=== PATIENT | female | born 1940 | race Caucasian/White ===

== ENCOUNTER → 2018-06-12 10:02 | Outpatient (CLI) | payer MEDICARE, SELFPAY ==
--- NOTE | 2018-06-12 10:06 | BI_ITS ---
MAMMOGRAPHY - BILATERAL SCREENING REASON FOR EXAM: Female, 78 years old. Routine annual screening examination. PERTINENT HISTORY: Aunt with breast cancer. Remote left stereotactic breast biopsy. TECHNIQUE: Digital bilateral breast renetta (3D mammographic acquisition) in the CC and MLO projections. 2-D mediolateral oblique (MLO) and craniocaudad (CC) views of both breasts were obtained. CAD: Full Field Digital Mammography with Computer Added Detection was performed. COMPARISON: Comparison is made with prior study dated April 16, 2017 and April 13, 2016. FINDINGS: Breast Composition: The breasts are almost entirely fatty. There are no dominant masses or suspicious calcifications. Stable benign-appearing bilateral axillary lymph nodes. A stereotactic tissue clip marker is once again seen in the medial aspect of the left breast. No other significant abnormalities are identified. There has been no significant change since the prior study. BI/SCREENING MAMM (CAD), BILAT IMPRESSION: Stable bilateral screening mammogram. Yearly follow-up mammogram recommended. (A) ASSESSMENT CATEGORY: BIRADS Category 2: Benign. A letter regarding these results will be sent to the patient by the facility within 30 days. Approximately 10% of breast cancers are not detected by mammography. A normal mammogram should not delay biopsy of a clinically suspicious abnormality. [id number] Electronically Signed: Jonathan Schaffer MD at 13:10 EST Tel [phone], Service support ,
--- NOTE | 2018-06-12 10:20 | BD_ITS ---
STUDY: DUAL ENERGY X-RAY ABSORPTIOMETRY / DXA REASON FOR EXAM: Female, 78 years old. The patient is postmenopausal. TECHNIQUE: Bone Mineral Density (BMD) measurements of lumbar spine and right hip were obtained. COMPARISON: Comparison is made with prior study dated April 13, 2016 and March 31, 2014. FINDINGS: Lumbar Spine (L1-L4): g/cm2 (1.323) / T-score (1.3) / Z-score (3.1) Findings are suggestive of normal bone density with a low fracture risk. Right Femur Total: g/cm2 (0.813) / T-score (-1.5) / Z-score (0.4) Right Femoral Neck: g/cm2 (0.756) / T-score (-2.0) / Z-score (0.0) The T-Scores on the most recent prior examination were: Lumbar Spine (L1-L4): There has been improvement of bone density since the previous examination. Right Femur Total: which represents a worsening of 2.9%. BD/Dexa Bone Density Study IMPRESSION: The patient is considered osteopenic as outlined below according to World Wei Organization (WHO) criteria with a moderate fracture risk. There has been worsening of bone density since the previous examination. Reference Information: The T-score is the number of standard deviations above or below the standard which is normal for young adults at their peak bone mineral density. The World Health Organization (WHO) interprets the T-scores as follows: Above -1 Normal bone density Between -1 and -2.5 Osteopenia Equal to / or below -2.5 Osteoporosis As a practical clinical guideline, osteopenia may be graded as follows: Mild -1 through -1.5 Moderate -1.6 through -2.0 Severe -2.1 through -2.4 The Z-score is the number of standard deviations above or below age-matched controls. A Z-score of less than -1.5 would be considered abnormal. References: 1. NIH Osteoporosis and Related Bone Diseases http://www.osteo.org 2. International Society for Clinical Densitometry http://www.iscd.org 3. National Osteoporosis Foundation http://www.nof.org Electronically Signed: Jonathan Schaffer MD at 14:28 EST Tel [phone], Service support ,
== END ==
PROVIDERS: Family Provider Internal Medicine; PCP Internal Medicine; Referring Provider Internal Medicine; Visit Provider Internal Medicine
DX: Z12.31 Encounter for screening mammogram for malignant neoplasm of breast (principal); Z78.0 Asymptomatic menopausal state
CPT/HCPCS: 77063; 77067; 77080

== ENCOUNTER → 2019-02-19 09:46 | Outpatient (CLI) | payer MEDICARE, SELFPAY ==
--- NOTE | 2019-02-19 09:48 | CDU_ITS ---
Reason For Study: ABN DOPPLER Rt. Velocities/BP Lt. Velocities/BP Prox CCA 123/20 cm/sec. Prox CCA 109+/21 cm/sec. Mid CCA 85/17 cm/sec. Mid CCA 94/19 cm/sec. Dist CCA 71/13 cm/sec. Dist CCA 96/25 cm/sec. Prox ICA 97/22 cm/sec. Prox ICA 85/18 cm/sec. Mid ICA 84/23 cm/sec. Mid ICA 81/25 cm/sec. Dist ICA 104/28 cm/sec. Dist ICA 105/30 cm/sec. Rt. ICA/CCA = .8. Lt. ICA/CCA = 1.0. Prox ECA 119/13 cm/sec. Prox ECA 123/14 cm/sec. Rt. Vert. 54/15 cm/sec. Lt. Vert. 44/11 cm/sec. Right Extracranial There is intimal thickening but no significant atherosclerotic plaque noted in the right common carotid artery. There is heterogeneous, irregular atherosclerotic plaque noted in the right internal carotid artery. There is heterogeneous, irregular atherosclerotic plaque noted in the right external carotid artery. Antegrade flow is noted in the right vertebral artery. Left Extracranial There is intimal thickening but no significant atherosclerotic plaque noted in the left common carotid artery. There is heterogeneous, irregular atherosclerotic plaque noted in the left internal carotid artery. There is heterogeneous, irregular atherosclerotic plaque noted in the left external carotid artery. Antegrade flow is noted in the left vertebral artery. Procedure Carotid Duplex [id number]. Exam performed in department. Interpretation Summary Mild (<50%) stenosis right extracranial internal carotid. Mild (<50%) stenosis left extracranial internal carotid. Flow within the vertebral arteries is antegrade bilaterally. Ordering Physician: Maritza Grbubs Referring Physician: Maritza Grubbs Performed By: Anita Epperson, RDCS, RVT
== END ==
PROVIDERS: Family Provider Internal Medicine; PCP Internal Medicine; Referring Provider Internal Medicine; Visit Provider Internal Medicine
DX: I65.23 Occlusion and stenosis of bilateral carotid arteries (principal); R93.89 Abnormal findings on diagnostic imaging of other specified body structures
CPT/HCPCS: 93880

== ENCOUNTER → 2019-06-18 13:07 | Outpatient (CLI) | payer MEDICARE, SELFPAY ==
--- NOTE | 2019-06-18 13:10 | BI_ITS ---
MAMMOGRAPHY - BILATERAL SCREENING REASON FOR EXAM: Female, 79 years old. Routine annual screening examination. PERTINENT HISTORY: Aunt with breast cancer. Remote left stereotactic breast biopsy. TECHNIQUE: Digital bilateral breast kaykay (3D mammographic acquisition) in the CC and MLO projections. 2-D mediolateral oblique (MLO) and craniocaudad (CC) views of both breasts were obtained. CAD: Full Field Digital Mammography with Computer Added Detection was performed. COMPARISON: Comparison is made with prior study dated June 12, 2018. FINDINGS: Breast Composition: The breasts are almost entirely fatty. There are no dominant masses or suspicious calcifications. Stable small benign-appearing bilateral axillary lymph No other significant abnormalities are identified. There has been no significant change since the prior study. BI/SCREEN MAMM (CAD) W/KAYKAY BILAT IMPRESSION: Stable bilateral screening mammogram. Yearly follow-up mammogram recommended. (A) ASSESSMENT CATEGORY: BIRADS Category 2: Benign. A letter regarding these results will be sent to the patient by the facility within 30 days. Approximately 10% of breast cancers are not detected by mammography. A normal mammogram should not delay biopsy of a clinically suspicious abnormality. [id number] Electronically Signed: Jonathan Schaffer, at 15:22 EST , Service support ,
== END ==
PROVIDERS: Family Provider Internal Medicine; PCP Internal Medicine; Referring Provider Internal Medicine; Visit Provider Internal Medicine
DX: Z12.31 Encounter for screening mammogram for malignant neoplasm of breast (principal)
CPT/HCPCS: 77063; 77067

== ENCOUNTER 2020-04-03 13:29 | Emergency (ER) | payer MEDICARE, SELFPAY ==
[2020-04-03 13:29] VITALS: BP 150/63; PULSE 74; RESP 22; TEMP 37.2; O2SAT 97; BMI 35.5
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
[2020-04-03 14:02] VITALS: BP 150/63; PULSE 74; RESP 17; TEMP 37.2
[2020-04-03] MEDS: 0.9% Normal Saline 1,000 ML 1000 ML IV (14:21)
[2020-04-03 14:27] LABS: Absolute Lymphocyte Count 2.06 X10^3/uL (0.83-4.51); Absolute Neutrophil Count 5.2 X10^3/uL (2.0-7.7); Basophil# 0.03 X10^3/uL; Basophil% 0.4 % (0-1); Eosinophil# 0.11 X10^3/uL; Eosinophils% 1.4 % (0-5); Hemoglobin 13.9 g/dL (12.0-15.0); Lymphocyte # 2.06 X10^3/ul (4.0); Lymphocyte % 25.5 % (19-41); Mean Corp Hgb Conc 33.9 g/dL (32-36); Mean Corpuscular Volume 91.3 fL (81-99); Mean Platelet Vol. 10.3 fl (6.2-12.0); Monocyte# 0.65 X10^3/uL; NRBC Flagged by Analyzer 0 % (0-5); Neutrophil # 5.22 X10^3/uL (2.7-7.7); Neutrophil % 64.6 % (47-70); Platelet Count 273 K/mm3 (150-450); RBC Distribution Width CV 12.8 % (11.6-14.6); RBC Distribution Width SD 42.1 fl (35.1-43.9); Red Blood Count 4.49 M/mm3 (4.2-5.4); White Blood Count 8.1 K/mm3 (4.4-11.0)
[2020-04-03 14:42] LABS: AST(SGOT) 24 U/L (15-37); Alanine Aminotransfer ALT/SGPT 34 U/L (13-56); Albumin, Serum 3.6 g/dL (3.2-5.0); Alkaline Phosphatase 51 U/L (45-117); Anion Gap 8 (5-15); BUN 23 mg/dL (7-18); BUN/Creat Ratio 21.7 RATIO (10-20); Calcium,Total 9.3 mg/dL (8.5-10.1); Chloride 103 mmol/L (98-107); Creatinine, Serum 1.06 mg/dL (0.55-1.02); EST Glomerular Filtration Rate 53 mL/min (>60); Est Glom Filt Rate - Afr Amer 64 mL/min (>60); Estimated Creatinine Clearance 33.48 ml/min; Globulin 3.5 g/dL (2.2-4.2); Glucose 137 mg/dL (74-106); Lipase 178 U/L (73-393); Protein, Total 7.1 g/dL (6.4-8.2); Sodium Level 138 mmol/L (136-145)
[2020-04-03 14:59] LABS: Mucous, Urine 0 SEEN /hpf (<or=2+); Red Blood Cells-Urine 0 SEEN /hpf (0-5); Squamous Epithelial Cells - UA 0 SEEN /hpf (5-10); White Blood Cells 0 SEEN /hpf (0-5)
[2020-04-03 15:10] LABS: Color, Urine Yellow (Yellow); Glucose, Dipstick Normal (Normal); Ketone-Dipstick 5 mg/dl (Negative); Leukocyte Esterase-Dipstick 25 /ul (Negative); Nitrite-Dipstick Negative (Negative); Occult Blood-Urine Negative /ul (Negative); Protein-Dipstick Negative (Negative); Specific Gravity, Urine 1.015 (1.002-1.030); Urine Bilirubin Dipstick Negative (Negative); Urine Clarity Clear (Clear); Urine Urobilinogen Normal (Normal)
[2020-04-03 15:22] LABS: Bacteria 1+ /hpf (None Seen); Hyaline Cast 0-5 SEEN /lpf (0-5)
--- NOTE | 2020-04-03 15:54 | ED.DEP ---
ED Disposition - Plan for ED Patient: Disposition: Home or Assisted Living Instructions: ED Abdominal Pain Unkn Cause Fem Referrals: Maritza Grubbs, [Primary Care Provider] - As soon as possible Additional Instructions: Your tests all look good except there is a possible cyst in your left lower abdomen that may or may not be causing your pain. You need to have an outpatient pelvic ultrasound to further evaluate this possible cyst. I spoke to Dr. Mcrae today. Call and follow-up with Dr. Browne on Sunday to be scheduled for an outpatient pelvic ultrasound to further evaluate this cyst.
[2020-04-03 16:09] VITALS: BP 152/102; PULSE 78; RESP 19; O2SAT 95
== END 2020-04-03 16:00 | disposition home or self-care (01) ==
PROVIDERS: Emergency Provider Emergency Medicine; PCP Internal Medicine
DX: R10.32 Left lower quadrant pain (principal); N94.89 Other specified conditions associated with female genital organs and menstrual cycle; K57.90 Diverticulosis of intestine, part unspecified, without perforation or abscess without bleeding; E03.9 Hypothyroidism, unspecified; E11.9 Type 2 diabetes mellitus without complications; Z79.82 Long term (current) use of aspirin; Z79.84 Long term (current) use of oral hypoglycemic drugs; Z79.899 Other long term (current) drug therapy
CPT/HCPCS: 74177; 80053; 81001; 83690; 85025; 96360; 99283; J7030; Q9967; A4216

== ENCOUNTER → 2020-04-21 13:50 | Outpatient (CLI) | payer MEDICARE, SELFPAY ==
[2020-04-03 13:29] VITALS: BMI 35.5
--- NOTE | 2020-04-21 13:54 | US_ITS ---
STUDY: ULTRASOUND OF THE FEMALE PELVIS - COMPLETE REASON FOR EXAM: Female, 80 years old. PELVIC PAIN , LTO CYST ON CT 04/03/20 LMP: Postmenopausal. TECHNIQUE: Transabdominal TECHNICAL QUALITY: Adequate. COMPARISON: Comparison is made with prior CT scan of the pelvis dated 04/03/2020. FINDINGS: The uterus is anteverted and is in a midline position. The uterus measures 7 cm x 4.1 cm x 2.8 cm. Normal uterine cervix. The endometrium measures 2.1 mm in thickness, and is . There is no demonstrated endometrial mass. There is no demonstrated myometrial mass. I.U.D. - The patient does not have an I.U.D. The right ovary is non-visualized. The left ovary is visualized. The left ovary measures 5.3 cm x 5.5 cm x 3.2 cm. There is a 3.8 cm x 3.3 cm x 2.4 cm simple cyst in the left ovary. There is no visualized left adnexal mass or complex lesion. There is normal arterial and normal venous vascularity. There is no fluid in the cul-de-sac. The pre void volume of the bladder was 171 ml. US/Pelvic (Non ) IMPRESSION: 3.8 cm x 3.3 cm x 2.4 cm left ovarian cyst. Follow-up is recommended. Electronically Signed: Jonathan Schaffer, at 15:43 EST , Service support ,
== END ==
PROVIDERS: PCP Internal Medicine; Referring Provider Internal Medicine; Visit Provider Internal Medicine
DX: R10.2 Pelvic and perineal pain (principal)
CPT/HCPCS: 76856

== ENCOUNTER → 2020-04-28 10:44 | Outpatient (CLI) | payer MEDICARE, SELFPAY ==
[2020-04-03 13:29] VITALS: BMI 35.5
[2020-04-29 08:43] LABS: Cancer Antigen 125 6.6 U/mL (0.0-38.1)
== END ==
PROVIDERS: PCP Internal Medicine; Referring Provider Obstetrics & Gynecology Gynecology; Visit Provider Obstetrics & Gynecology Gynecology
DX: D39.12 Neoplasm of uncertain behavior of left ovary (principal)
CPT/HCPCS: 36415; 86304

== ENCOUNTER 2020-06-29 08:48 | Emergency (ER) | payer MEDICARE, SELFPAY ==
[2020-06-29 08:49] VITALS: BP 140/64; PULSE 80; RESP 16; TEMP 36.4; O2SAT 96; BMI 34.7
--- NOTE | 2020-06-29 09:01 | ED.VIS.GEN ---
History of Present Illness Chief Complaint: Upper Extremity Injury Informant: Patient Narrative: 80-year-old female presents with atraumatic left wrist pain of 1 day duration. Symptoms began yesterday when she woke up and is progressively gotten worse. She notes pain of the wrist any type of range of motion. She denies any known trauma. No known inflammatory arthropathies. No history of tendinitis. She has previously broken this wrist. Patient states she called her doctor's office today and was told to come to emergency as she may need an x-ray. Past Medical History - Allergies and Home Meds Allergies/Adverse Reactions: Allergies acetaminophen [From Darvocet-N] Allergy (Verified 06/29/20 08:49) PT UNSURE OF REACTION nabumetone Allergy (Verified 06/29/20 08:49) PT UNSURE OF REACTION propoxyphene [From Darvocet-N] Allergy (Verified 06/29/20 08:49) PT UNSURE OF REACTION rosiglitazone [From Avandia] Allergy (Verified 06/29/20 08:49) PT UNSURE OF REACTION saxagliptin [From Onglyza] Allergy (Verified 06/29/20 08:49) PT UNSURE OF REACTION simvastatin [From Zocor] Allergy (Verified 06/29/20 08:49) PT UNSURE OF REACTION terbinafine [From Lamisil] Allergy (Verified 06/29/20 08:49) PT UNSURE OF REACTION tramadol Allergy (Verified 06/29/20 08:49) PT UNSURE OF REACTION warfarin [From Coumadin] Allergy (Verified 06/29/20 08:49) PT UNSURE OF REACTION Primary Care Physician: Maritza Grubbs DO [Primary Care Provider] - Past Medical History: - - Diabetes, neuropathy, hypertension, hyperlipidemia, hypothyroidism Surgical History: noncontributory Lives: Spouse/ Significant Other Smoking Status: Never smoker Alcohol: None Drugs: None Review of Systems General: Denies: Chills, Fever, Sweats Eyes: Denies: Visual changes - bilaterally, Diplopia ENT: Denies: Rhinorrhea, Sore throat Cardiovascular: Denies: Chest pain, Palpitations Respiratory: Denies: Dyspnea, Cough, Dyspnea on exertion Gastrointestinal: Denies: Abdominal pain, Nausea, Vomiting, Diarrhea, Melena, Hematochezia Genitourinary: Denies: Dysuria, Hematuria, Frequency Musculoskeletal: Reports: Extremity Pain. Denies: Back pain Skin: Denies: Rash, Wounds Neurological: Denies: Headache, Weakness, Numbness Physical Exam Vital Signs/Narrative: Vital Signs Temp Pulse Resp BP Pulse Ox 06/29/20 08:49 97.5 F L 80 16 140/64 H 96 Inital Vital Signs reviewed: Yes General: Well nourished, Well developed, No Acute Distress Head: Normocephalic, Atraumatic Eyes: Perrl, EOMI ENT: Moist mucous membranes, No rhinorrhea Neck: Supple, Nontender Cardiovascular: Regular rate, Regular rhythm, No murmurs Respiratory: No distress, CTA bilaterally, Chest nontender Abdomen: Soft, Nontender, Nondistended, Normal bowel sounds Back: Nontender, Normal Inspection Extremities: No edema, - - Left wrist no deformity. No significant swelling. Mild erythema along the lateral dorsal aspect of the wrist. She has pain with any motion of her thumb. Vascular intact Skin: Normal color, No rash Neurological: Alert, Oriented x3, Cranial nerves II-XII grossly intact, Normal Strength, Normal Sensation Psychological: Normal affect, Normal Mood Diagnostic/Tx/Re-eval Clinical Impression(s) from Imaging Studies Wrist X-Ray 06/29/20 09:10 IMPRESSION: Deformity of the distal radial metaphysis most likely secondary to an old fracture. Chondrocalcinosis. Degenerative changes. Electronically Signed: Jonathan Schaffer MD at 9:36 EST , Service support , - Medical Decision Making Interpretation of the plain films of the left wrist are degenerative changes and prior old fracture. No acute deformities. Patient has some mild erythema on the dorsal lateral aspect of the wrist. She has pain with movement of the thumb. This could be a de Quervain's tenosynovitis versus gout versus arthritic flare. Things reasonable to do a thumb spica splint and short course of prednisone. I can write for a few [place] for severe pain. I recommend she follow-up within 1 week with her primary care physician. If not improved would possibly refer to orthopedics. ED Disposition - Plan for ED Patient: Disposition: Home or Assisted Living Diagnosis: Left wrist pain, De Quervain's disease (tenosynovitis) Instructions: ED De Quervain Tenosynovitis Prescriptions: Prednisone [Deltasone] 40 mg PO DAILY #10 tab Prescription Printed Hydrocodone Bitart/Apap 5-325 [[place] 5MG-325MG] 1 tab PO Q6H PRN PRN 3 Days #10 tab PRN Reason: Pain Prescription Printed Referrals: Maritza Grubbs DO [Primary Care Provider] - 1 Week Additional Instructions: Please be advised your blood sugars will rise while on prednisone. Any narcotic pain medication has the potential to cause side effects such as confusion, fatigue, constipation, etc. Please use cautiously.
--- NOTE | 2020-06-29 09:10 | RAD_ITS ---
STUDY: X-RAY - LEFT WRIST REASON FOR EXAM: Female, 80 years old. PAIN X1 DAY. NO INJURY TECHNIQUE: 3 view(s) of the wrist were obtained. COMPARISON: None. FINDINGS: There is deformity of the distal radial metaphysis in keeping with the prior injury and healed fracture. There is degenerative arthrosis of the radiocarpal articulation. There is degenerative arthrosis of the distal radioulnar articulation. Normal carpal bones. Normal carpal articulations. There is evidence of a chondrocalcinosis of the triangular fibrocartilage. There is degenerative arthrosis of the carpometacarpal articulation of the thumb. Normal second through fifth carpometacarpal articulations. Normal visualized metacarpal bones. Soft tissue swelling. RAD/Wrist min 3 Views IMPRESSION: Deformity of the distal radial metaphysis most likely secondary to an old fracture. Chondrocalcinosis. Degenerative changes. Electronically Signed: Jonathan Schaffer MD at 9:36 EST , Service support ,
== END 2020-06-29 10:31 | disposition home or self-care (01) ==
PROVIDERS: Emergency Provider Emergency Medicine; PCP Internal Medicine
DX: M65.4 Radial styloid tenosynovitis [de Quervain] (principal); I10 Essential (primary) hypertension; E11.40 Type 2 diabetes mellitus with diabetic neuropathy, unspecified; E03.9 Hypothyroidism, unspecified; E78.5 Hyperlipidemia, unspecified; Z79.84 Long term (current) use of oral hypoglycemic drugs; Z79.82 Long term (current) use of aspirin; Z79.899 Other long term (current) drug therapy
CPT/HCPCS: 73110; 99283

== ENCOUNTER → 2020-07-08 14:13 | Outpatient (CLI) | payer MEDICARE, SELFPAY ==
[2020-06-29 08:49] VITALS: BMI 34.7
--- NOTE | 2020-07-08 14:16 | BI_ITS ---
MAMMOGRAPHY - BILATERAL SCREENING REASON FOR EXAM: Female, 80 years old. Routine annual screening examination. PERTINENT HISTORY: Aunt with breast cancer. Remote left stereotactic breast biopsy. TECHNIQUE: Digital bilateral breast kaykay (3D mammographic acquisition) in the CC and MLO projections. 2-D mediolateral oblique (MLO) and craniocaudad (CC) views of both breasts were obtained. CAD: Full Field Digital Mammography with Computer Added Detection was performed. COMPARISON: Comparison is made with prior study dated 06/18/2019 and 06/12/2018. FINDINGS: Breast Composition: The breasts are almost entirely fatty. There are no dominant masses or suspicious calcifications. Stable benign appearing bilateral axillary nodes. No other significant abnormalities are identified. There has been no significant change since the prior study. BI/SCRN MAMM (CAD)W/KAYKAY BILAT IMPRESSION: Stable bilateral screening mammogram. Yearly follow-up mammogram recommended. (A) ASSESSMENT CATEGORY: BIRADS Category 2: Benign. A letter regarding these results will be sent to the patient by the facility within 30 days. Approximately 10% of breast cancers are not detected by mammography. A normal mammogram should not delay biopsy of a clinically suspicious abnormality. [id number] Electronically Signed: Jonathan Schaffer MD at 15:44 EST , Service support ,
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
== END ==
PROVIDERS: PCP Internal Medicine; Referring Provider Internal Medicine; Visit Provider Internal Medicine
DX: Z12.31 Encounter for screening mammogram for malignant neoplasm of breast (principal); Z78.0 Asymptomatic menopausal state
CPT/HCPCS: 77063; 77067; 77080

== ENCOUNTER 2020-07-09 08:37 | Outpatient (RCR) | payer MEDICARE, SELFPAY | END 2020-07-09 23:59 | LOC: IMMUN 08:37 | PROVIDERS: PCP Internal Medicine; Referring Provider Family Medicine; Visit Provider Family Medicine | DX: Z23 Encounter for immunization (principal) | CPT/HCPCS: 0011A; 0012A ==

== ENCOUNTER → 2020-07-30 10:44 | Outpatient (CLI) | payer MEDICARE, SELFPAY ==
--- NOTE | 2020-07-30 10:46 | US_ITS ---
STUDY: ULTRASOUND OF THE FEMALE PELVIS - COMPLETE REASON FOR EXAM: Female, 80 years old. NEOPLASM OF UNCERTAIN BEHAVIOR OF LEFT OVARY LMP: Postmenopausal. TECHNIQUE: Transvaginal TECHNICAL QUALITY: Adequate. COMPARISON: Comparison is made with prior examination dated 04/21/2020. FINDINGS: The uterus is anteverted and is in a midline position. The uterus measures 5.6 cm x 4.2 sono by 2.6 cm. Normal uterine cervix. The endometrium is thickened and measures 4.1 mm in thickness, and is fluid distended. There is a 5 mm x 4 mm x 2 mm hypoechoic nodule within the endometrium. This may represent an endometrial polyp. There is no demonstrated myometrial mass. I.U.D. - The patient does not have an I.U.D. The right ovary is non-visualized. The left ovary is visualized. The left ovary measures 4.3 cm x 4.4 cm x 3.3 cm. There is a 4.2 cm x 3.4 cm x 2.8 cm cyst in the left ovary. There is no visualized left adnexal mass or complex lesion. There is normal arterial and normal venous vascularity. There is no fluid in the cul-de-sac. US/Transvaginal Non- IMPRESSION: Fluid distended endometrium. 4.2 cm x 3.4 cm x 2.8 semi a cyst in the left ovary. This has increased in size as compared to prior study. Electronically Signed: Jonathan Schaffer MD at 14:59 EST , Service support ,
== END ==
PROVIDERS: PCP Internal Medicine; Referring Provider Obstetrics & Gynecology Gynecology; Visit Provider Obstetrics & Gynecology Gynecology
DX: D39.12 Neoplasm of uncertain behavior of left ovary (principal)
CPT/HCPCS: 76830

== ENCOUNTER → 2021-02-02 12:07 | Outpatient (CLI) | payer MEDICARE, SELFPAY ==
--- NOTE | 2021-02-02 12:10 | US_ITS ---
STUDY: ULTRASOUND TRANSVAGINAL CLINICAL: Female, 80 years old. CYST TECHNIQUE: Transvaginal COMPARISON: None. FINDINGS: Normal uterine size measuring 5.4 x 3.8 x 2.6 cm in maximal craniocaudal dimension. There are no myometrial masses. The endometrial thickness measuring 9 mm. There is mild fluid in the endometrial cavity. Questionable 3 x 4 mm endometrial nodule. Nabothian cysts at the uterine cervix. Normal right ovary, measuring 2.5 x 1.5 x 1.8 cm. There are multiple follicles without a dominant cyst. Normal left ovary, measuring 5.0 x 3.9 x 3.3 cm. There is a 4.2 x 3.2 x 2.8 cm left adnexal cyst. There is no free fluid in the pelvis. US/Pelvic (Non ) IMPRESSION: Mild endometrial fluid with questionable endometrial nodule or polyp. Prominent left adnexal cyst. Electronically Signed: Ever Munroe DO at 16:56 EDT Tel [phone], Service support ,
--- NOTE | 2021-02-02 12:11 | US_ITS ---
STUDY: ULTRASOUND TRANSVAGINAL CLINICAL: Female, 80 years old. CYST TECHNIQUE: Transvaginal COMPARISON: None. FINDINGS: Normal uterine size measuring 5.4 x 3.8 x 2.6 cm in maximal craniocaudal dimension. There are no myometrial masses. The endometrial thickness measuring 9 mm. There is mild fluid in the endometrial cavity. Questionable 3 x 4 mm endometrial nodule. Nabothian cysts at the uterine cervix. Normal right ovary, measuring 2.5 x 1.5 x 1.8 cm. There are multiple follicles without a dominant cyst. Normal left ovary, measuring 5.0 x 3.9 x 3.3 cm. There is a 4.2 x 3.2 x 2.8 cm left adnexal cyst. There is no free fluid in the pelvis. US/Transvaginal Non- IMPRESSION: Mild endometrial fluid with questionable endometrial nodule or polyp. Prominent left adnexal cyst. Electronically Signed: Ever Munroe DO at 16:56 EDT Tel [phone], Service support ,
== END ==
PROVIDERS: PCP Internal Medicine; Referring Provider Obstetrics & Gynecology Gynecology; Visit Provider Obstetrics & Gynecology Gynecology
DX: N83.202 Unspecified ovarian cyst, left side (principal); R93.5 Abnormal findings on diagnostic imaging of other abdominal regions, including retroperitoneum
CPT/HCPCS: 76830; 76856

== ENCOUNTER 2021-03-08 05:45 | Day surgery (SDC) | payer MEDICARE, SELFPAY ==
[2021-03-08] VITALS (8 sets, daily range): BP systolic 93–133; BP diastolic 50–90; PULSE 56–69; RESP 16–18; TEMP 36.1–36.9; O2SAT 92–97; BMI 34.4
[2021-03-08 06:31] LABS: Bedside Glucose 150 mg/dL (70-110)
[2021-03-08] MEDS: Lactated Ringers 1,000 ML 100 ML IV (06:42)
[2021-03-08 06:53] LABS: Hematocrit 39.2 % (37-47); Mean Corp Hgb Conc 33.2 g/dL (32-36); Mean Corpuscular Hgb 30.2 pg (27.0-32.0); Mean Corpuscular Volume 91.2 fL (81-99); Mean Platelet Vol. 9.8 fl (6.2-12.0); Platelet Count 274 K/mm3 (150-450); RBC Distribution Width CV 13.2 % (11.6-14.6); RBC Distribution Width SD 44.1 fl (35.1-43.9); White Blood Count 7.6 K/mm3 (4.4-11.0)
--- NOTE | 2021-03-08 07:16 | PCM.HP.OB ---
HPI - General HPI Narrative PIPPA MURPHY, is a 80 F who presents for hysteroscopy with Dilation and curettage due to a 4mm endometrial lesion which has grown to 9mm over the past 6 mo. A 3.8 cm left ovarian cyst has remained stable. [facility] Medical History Arthritis Back pain Bladder disease Diabetes Dietary restriction DVT (deep venous thrombosis) Sravani filter in place High cholesterol History of pain when walking History of stress test Hx of fracture of left hip Hypertension Leg cramps Loss of consciousness Non-smoker Thyroid disease Home Medications amlodipine 10 mg PO DAILY 04/03/20 [History Last Taken 03/08/21 04:00] aspirin 325 mg PO DAILY@0800 04/03/20 [History Last Taken Unknown] atorvastatin 40 mg PO QHS 04/03/20 [History Last Taken Unknown] fluticasone propionate 1 spray NASAL DAILY PRN 04/03/20 [History Last Taken Unknown] gabapentin 200 mg PO 4X/DAY 04/03/20 [History Last Taken 03/08/21 04:00] hydrochlorothiazide 25 mg PO DAILY 04/03/20 [History Last Taken Unknown] levothyroxine 125 mcg PO DAILY 04/03/20 [History Last Taken 03/08/21 04:00] metformin 500 mg PO BID 04/03/20 [History Last Taken Unknown] nbjicvpz-byx-MZ-lycopen-lutein 1 ea PO DAILY 04/03/20 [History Last Taken Unknown] quinapril 40 mg PO DAILY 04/03/20 [History Last Taken 03/08/21 04:00] cholecalciferol (vitamin D3) [Vitamin D3] 75 mcg PO DAILY 03/02/21 [History Last Taken Unknown] Allergy/AdvReac Type Severity Reaction Status Date / Time acetaminophen Allergy PT UNSURE Verified 03/08/21 06:10 [From Darvocet-N] OF REACTION nabumetone Allergy PT UNSURE Verified 03/08/21 06:10 OF REACTION propoxyphene Allergy PT UNSURE Verified 03/08/21 06:10 [From Darvocet-N] OF REACTION rosiglitazone [From Avandia] Allergy PT UNSURE Verified 03/08/21 06:10 OF REACTION saxagliptin [From Onglyza] Allergy PT UNSURE Verified 03/08/21 06:10 OF REACTION simvastatin [From Zocor] Allergy PT UNSURE Verified 03/08/21 06:10 OF REACTION terbinafine [From Lamisil] Allergy PT UNSURE Verified 03/08/21 06:10 OF REACTION tramadol Allergy PT UNSURE Verified 03/08/21 06:10 OF REACTION warfarin [From Coumadin] Allergy PT UNSURE Verified 03/08/21 06:10 OF REACTION prednisone AdvReac HEAD GETS Verified 03/08/21 06:10 FUZZY Surgical History (Updated 03/02/21 @ 11:24 by Jessica Crocker) History of axillary surgery History of [place] fundoplication Hx laparoscopic cholecystectomy Hx of colonoscopy Hx of left cataract extraction Hx of right cataract extraction Social History Smoking Status: Never smoker ROS Constitutional Constitutional: Reports systems reviewed and no addt'l complaints, except as documented Cardiovascular Cardiovascular: Reports none Respiratory/Chest Respiratory/Chest: Reports none Gastrointestinal Gastrointestinal: Reports none Genitourinary Genitourinary: Reports low back pain, urinary frequency and other Details: no postmenopausal bleeding. 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 Hematologic/Lymphatic Hematologic/Lymphatic: Reports none Allergic/Immunologic Allergic/Immunologic: Reports none Vital Signs Vital Signs Vital Signs: 03/08/21 06:13 03/08/21 06:25 Temperature 98.5 F Temperature Source Temporal Pulse Rate 69 Respiratory Rate 16 Respiratory Pattern Normal Blood Pressure 133/53 H Blood Pressure Mean 79 Blood Pressure Source Monitor Blood Pressure Position Semi-Fowlers Blood Pressure Location Right Arm Pulse Ox 97 Oxygen Delivery Method Room Air Weight Weight: 194 lb 3.636 oz Body Mass Index (BMI) 34.4 Physical Exam Narrative Elderly WF iin NAD Const alert, oriented x3 and no apparent distress General Appearance: well kempt HEENT normocephalic Head and Scalp: normal to inspection Eyes PERRL and EOMs intact bilaterally Neck full ROM General: normal visual inspection Thyroid: thyroid normal Chest inspection of chest normal Chest: symmetrical chest wall rise Resp normal respiratory effort, normal air movement and clear to auscultation bilaterally Effort and Inspection: able to speak in complete sentences Cardio regular rate and regular rhythm GI normal to inspection, nondistended, normoactive bowel sounds, soft to palpation, non-tender and no masses Narrative: Limited examination due to flexion at hip and abduction difficulties. Bladder / Kidney Exam: bladder normal to palpation Speculum Exam - Cervix: cervical os closed Bimanual Exam - Vag & Uterus: normal bimanual exam and other small atrophic uterus Bimanual Exam - Adnexa, Other: adnexae mobile Back/Spine no CVA tenderness Extremity normal to inspection Labs Labs Labs: Blood Type Pending Antibody Screen Pending Hct 39.2 % (37-47) Hgb 13.0 g/dL (12.0-15.0) Assessment & Plan (1) Abnormal ultrasound of uterus: COMMENT: For hysteroscopy with dilation and curettage (2) Left ovarian cyst: COMMENT: stable. Will monitor PLAN: hysteroscopy with dilation and curettage
[2021-03-08] MEDS: Cefotetan 2 GM in 0.9% NS 100 ML IV (07:30)
--- NOTE | 2021-03-08 07:30 | EMB_PTH ---
PATIENT: PIPPA MURPHY LOC: [facility] – [place] U#:[id number] AGE/SX: 80/F ROOM: RE03/08/[address]: Dr. Lorraine Andrade MD : [id number] BED: DIS: 03/08/2021 SPEC #: [id number] RECD: 03/08/21 10:59 STATUS: JAYDEN REQ #: [id number] ARTURO: 03/08/21 07:[address]: Lorraine Andrade DEPT: SURGICAL PATHOLOGY RECD BY: Taylor Moore ENTERED: 03/08/21 13:18 SP TYPE: ENDOM BX/C OT DR: Dr. Maritza Grubbs DO Tissues: Endometrium, NOS Procedures: Surgery Specimen Level IV HEADER OPERATION: Hysteroscopy, D & C PRE-OP DIAGNOSIS: Abnormal ultrasound of uterus; left ovarian cyst TISSUE SUBMITTED: Endometrial curettings, endometrial polyps MICROSCOPIC DIAGNOSIS Endometrial polyp and curettings: Polypoid fragment of endometrium with simple cystic hyperplasia without atypia. AM:carlos 03/09/2021 MICROSCOPIC DESCRIPTION Slides are reviewed. GROSS DESCRIPTION Received in fixative is one container labeled with the patient's name and designated endometrial curettings and polyp. The specimen consists of multiple irregular fragments of mcleod-pink soft tissue mixed with mucoid tissue that in aggregate measure 2.5 x 1 x 0.1 cm. The specimen is totally submitted in one cassette. / KIKO:carlos 03/08/21 TC:5 CPT: 46529
--- NOTE | 2021-03-08 08:13 | OP.PCM_ITS ---
Problems Associated Problem List Diagnoses (1) Abnormal ultrasound of uterus: Report of Operation Date of Procedure: 03/08/21 Pre-Operative Diagnosis: Abnormal pelvic ultrasound showing an enlarging endometrial polyp with some endometrial fluid and an otherwise thin lining. Post-Operative Diagnosis: Atrophic endometrium with endometrial polyp growing from left sidewall. Cervical stenosis. Surgery/Procedure Performed:: Hysteroscopy with dilation and curettage. Partial polypectomy. Description of Surgical Findings:: Once the patient was well sedated, the bladder was emptied and a weighted speculum was placed in the vagina. The cervix was exposed with the aid of the Caldwell speculum and the anterior lip of the cervix grasped with a single-tooth tenaculum. Endocervical canal was dilated with some difficulty as it was stenosed. Initial insertion of the hysteroscope confirmed that the uterine cavity itself had not been entered. And with gentle probing the entry into the uterus was discovered and dilated. Entry was confirmed with the egress of minimally milky/cloudy mucoid fluid. The hysteroscope was reinserted and the endometrial cavity inspected with confirmation of a polyp growing from the left sidewall of the uterus about mid body level with features as described above it was cystic and quite avascular. The rest of the endometrial cavity was quite atrophic and both ostia were visualized. Sharp curettage was performed several times in attempts to remove the polyp however on reinspection the polyp was noted to be present and eventually after pieces of the polyp had broken off the procedure was abandoned especially as the lesion looked quite benign. The pieces will be sent for pathology. Sponge counts were correct x2. Surgeon: Lorraine Diaz section leader screen printing: Marya Type of Anesthesia: IV Sedation Anesthesiologist: Wilfrid Bush Specimen's removed: Endometrial curettings- Drains: None Estimated Blood Loss (mL): 5 mL Fluids Replaced: 700 mL IV fluid Complications None noted Admit VTE Documentation VTE Present on Admission: No VTE Mechan Device Prophylaxis: SCD's VTE Pharm Prophylaxis ordered?: No Reason prophylaxis not ordered:: Treatment Not Indicated
== END 2021-03-08 09:40 | disposition home or self-care (01) ==
LOC: SDC 05:47 → AC 05:47
PROVIDERS: PCP Internal Medicine; Referring Provider Obstetrics & Gynecology Gynecology; Visit Provider Obstetrics & Gynecology Gynecology
PROC: 0UDB8ZZ Extraction of Endometrium, Via Natural or Artificial Opening Endoscopic (ICD-10-PCS; CPT 58558; principal; 2021-03-08 07:20)
DX: N85.01 Benign endometrial hyperplasia (principal); N83.202 Unspecified ovarian cyst, left side; I10 Essential (primary) hypertension; E07.9 Disorder of thyroid, unspecified; E11.9 Type 2 diabetes mellitus without complications; E78.00 Pure hypercholesterolemia, unspecified; M19.90 Unspecified osteoarthritis, unspecified site; Z86.718 Personal history of other venous thrombosis and embolism; Z79.82 Long term (current) use of aspirin; Z79.84 Long term (current) use of oral hypoglycemic drugs; Z79.899 Other long term (current) drug therapy
CPT/HCPCS: 00952; 58558; 82962; 85027; 86850; 86900; 86901; 88305; J7120; J2405

== ENCOUNTER 2021-07-13 13:39 | Emergency (ER) | payer MEDICARE, SELFPAY ==
[2021-07-13 13:39] VITALS: BP 165/62; PULSE 77; RESP 16; TEMP 36.4; O2SAT 97; BMI 35.8
--- NOTE | 2021-07-13 14:14 | CT_ITS ---
STUDY: CT ABDOMEN AND PELVIS WITH CONTRAST REASON FOR EXAM: Female, 81 years old. LUQ abdominal pain RADIATION DOSAGE (If Supplied By Facility): CTDIvol = ( 14.16 ) mGy, DLP = ( 1129.08 ) mGycm TECHNIQUE: Transaxial images were obtained from the dome of the diaphragm to the symphysis pubis without oral contrast. IV 100mL Isovue-370 was administered. Sagittal and coronal images were reconstructed. Individualized dose optimization techniques were used for this CT. COMPARISON: Comparison is made with prior study dated 04/03/2020. FINDINGS: The visualized lung bases are unremarkable. Coronary artery calcification. There is calcification of the mitral valve annulus. Normal liver. There are surgical clips in the gallbladder fossa consistent with a prior cholecystectomy. Normal spleen. Normal pancreas. Normal bilateral adrenal glands. Stable mild right hydronephrosis and proximal right hydroureter. Normal left kidney. There is a small hiatal hernia. Normal small intestine. There are multiple colonic diverticula consistent with diverticulosis. The appendix is visualized and appears normal. There is diffuse atherosclerotic calcification of the abdominal aorta and its major visceral branches, without a demonstrated aneurysm. There is an IVC filter in place. Normal retroperitoneum. Normal urinary bladder. There is a 3.3 cm cyst in the left ovary. This is unchanged. Follow-up is suggested. Normal abdominal wall. Once again, there is operative hardware of the pelvis in the left hip. CT/Abdomen/Pelvis W IV Cont ONLY IMPRESSION: Stable left ovarian cyst. Follow-up is recommended. Sigmoid diverticulosis. Electronically Signed: Jonathan Schaffer MD at 15:37 EST ,
--- NOTE | 2021-07-13 14:14 | EKG12_ITS ---
Test Reason : ABDPAIN Blood Pressure : / mmHG Vent. Rate : 070 BPM Atrial Rate : 070 BPM P-R Int : 216 ms QRS Dur : 086 ms QT Int : 416 ms P-R-T Axes : 049 -44 016 degrees QTc Int : 449 ms Sinus rhythm with 1st degree A-V block Left axis deviation Low voltage QRS Abnormal ECG Confirmed by DEMETRICE VASQUEZ, COY ([id number]), web editor GALI LOWE ([id number]) on 07/14/2021 9:48:36 AM Referred By: ZOLTAN Confirmed By:COY SURESH MD
--- NOTE | 2021-07-13 14:18 | ED.VIS.GI ---
HPI HPI - GI History of Present Illness Chief Complaint: Abd Pain Narrative Narrative: 81-year-old female presenting with left upper quadrant abdominal pain. She states that this is intermittent. She feels as if it is relieved when she belches or passes gas. She states this is been going on for about a week. She denies constipation or diarrhea. She has no urinary complaints. Denies fever or chills. Patient states today the pain seems to be radiating up into her shoulder blades. She denies anterior chest pain or shortness of breath. PFSH PFS Medical History Arthritis Back pain Bladder disease Diabetes Dietary restriction DVT (deep venous thrombosis) Lyons filter in place High cholesterol History of pain when walking History of stress test Hx of fracture of left hip Hypertension Leg cramps Loss of consciousness Non-smoker Thyroid disease Home Medications amlodipine 10 mg PO DAILY 04/03/20 [History Last Taken 03/08/21 04:00] aspirin 325 mg PO DAILY@0800 04/03/20 [History Last Taken Unknown] atorvastatin 40 mg PO QHS 04/03/20 [History Last Taken Unknown] fluticasone propionate 1 spray NASAL DAILY PRN 04/03/20 [History Last Taken Unknown] gabapentin 200 mg PO 4X/DAY 04/03/20 [History Last Taken 03/08/21 04:00] hydrochlorothiazide 25 mg PO DAILY 04/03/20 [History Last Taken Unknown] levothyroxine 125 mcg PO DAILY 04/03/20 [History Last Taken 03/08/21 04:00] metformin 500 mg PO BID 04/03/20 [History Last Taken Unknown] msynpgnk-pbn-LJ-lycopen-lutein 1 ea PO DAILY 04/03/20 [History Last Taken Unknown] quinapril 40 mg PO DAILY 04/03/20 [History Last Taken 03/08/21 04:00] cholecalciferol (vitamin D3) [Vitamin D3] 75 mcg PO DAILY 03/02/21 [History Last Taken Unknown] Allergy/AdvReac Type Severity Reaction Status Date / Time nabumetone Allergy PT UNSURE Verified 07/13/21 14:32 OF REACTION propoxyphene Allergy PT UNSURE Verified 07/13/21 14:32 [From Darvocet-N] OF REACTION rosiglitazone [From Avandia] Allergy PT UNSURE Verified 07/13/21 14:32 OF REACTION saxagliptin [From Onglyza] Allergy PT UNSURE Verified 07/13/21 14:32 OF REACTION simvastatin [From Zocor] Allergy PT UNSURE Verified 07/13/21 14:32 OF REACTION terbinafine [From Lamisil] Allergy PT UNSURE Verified 07/13/21 14:32 OF REACTION tramadol Allergy PT UNSURE Verified 07/13/21 14:32 OF REACTION warfarin [From Coumadin] Allergy PT UNSURE Verified 07/13/21 14:32 OF REACTION prednisone AdvReac HEAD GETS Verified 07/13/21 14:32 FUZZY Surgical History History of axillary surgery History of [place] fundoplication Hx laparoscopic cholecystectomy Hx of colonoscopy Hx of left cataract extraction Hx of right cataract extraction Social History Smoking Status: Never smoker ROS ROS ED Constitutional Constitutional ED: Denies chills or fever(s) ENT ENT ED: Denies rhinorrhea or sore throat Cardiovascular Cardiovascular: Denies chest pain or palpitations Respiratory/Chest Respiratory/Chest: Denies cough or dyspnea Gastrointestinal Gastrointestinal: Reports abdominal pain; Denies constipation, diarrhea, melena or vomiting Genitourinary Genitourinary ED: Denies dysuria Musculoskeletal Musculoskeletal: Reports back pain Integumentary Denies rash Neurologic Neurologic: Denies headache(s) or paresthesias EXAM Physical Exam Const Vital Signs: 07/13/21 13:39 07/13/21 16:30 Temperature 97.6 F L Temperature Source Temporal Pulse Rate 77 Respiratory Rate 16 15 Blood Pressure 165/62 H Blood Pressure Mean 96 Pulse Ox 97 Oxygen Delivery Method Room Air Room Air Positive well nourished General Appearance ED: NAD; Negative for pallor HEENT Reports moist mucous membranes normocephalic and atraumatic Eyes PERRL and EOMs intact bilaterally Neck no lymphadenopathy and supple Resp normal respiratory effort and clear to auscultation bilaterally Cardio regular rate and regular rhythm GI non-distended Palpation: soft and tender LUQ; Negative for guarding or rigid Back/Spine no CVA tenderness Neuro Sensorium / Orientation: alert, oriented to person, oriented to place and oriented to time Psych mental status grossly normal and thought process normal Skin General Skin Exam: Negative for jaundice or pallor MDM MDM MDM Narrative Medical decision making narrative: Patient presenting with left upper quadrant abdominal pain. She states this is relieved by belching and flatus. Her abdominal exam is benign. I did obtain blood work and her CBC and CMP are normal. LFTs are normal. Lipase negative at 170. Because of the radiation to her back I did obtain an EKG which is sinus rhythm without sign of ischemic change or dysrhythmia. Chest x-ray on my interpretation shows no acute cardiopulmonary process and the radiologist agree. Patient had CT of the abdomen pelvis IV contrast which does not show anything acute. She does have a stable left ovarian cyst which is known. Patient counseled on all findings and at this point I feel she is stable to be discharged home. Patient is given return precautions. Impression: 1. Abdominal pain Lab Data Attestation: I reviewed the patient's lab results. Labs: Laboratory Results - last 24 hr 07/13/21 07/13/21 14:30 14:30 WBC 10.0 RBC 4.51 Hgb 13.7 Hct 40.5 MCV 89.8 MCH 30.4 MCHC 33.8 RDW Std Deviation 43.1 RDW Coeff of Blanche 13.2 Plt Count 270 MPV 10.1 Immature Gran % (Auto) 0.200 Neut % (Auto) 64.0 Lymph % (Auto) 25.3 [place] % (Auto) 8.0 Eos % (Auto) 2.1 Baso % (Auto) 0.4 Absolute Neuts (auto) 6.4 Absolute Lymphs (auto) 2.54 Nucleated RBC % 0 Sodium 138 Potassium 3.8 Chloride 102 Carbon Dioxide 27.0 Anion Gap 9 BUN 19 H Creatinine 0.87 Estim Creat Clear Calc 40.11 Est GFR (MDRD) Af Amer 80 Est GFR (MDRD) Non-Af 66 BUN/Creatinine Ratio 21.9 H Glucose 121 H Calcium 9.7 Total Bilirubin 0.80 AST 21 ALT 33 Alkaline Phosphatase 54 Troponin I High Sens 8 Total Protein 7.4 Albumin 3.7 Globulin 3.7 Albumin/Globulin Ratio 1.0 Lipase 170 Radiography Diagnostic Testing: Clinical Impression(s) from Imaging Studies Abdomen/Pelvis CT 07/13/21 14:14 IMPRESSION: Stable left ovarian cyst. Follow-up is recommended. Sigmoid diverticulosis. Electronically Signed: Jonathan Schaffer MD at 15:37 EST , Chest X-Ray 07/13/21 14:45 IMPRESSION: No acute pulmonary process Electronically Signed: Onesimo Dorado MD at 16:50 EST , Discharge Plan Triage Chief Complaint: Abd Pain ED Provider: Joe Warner Dx/Rx/DC Orders Instructions: ED Abdominal Pain Unkn Cause Male... Prescriptions: No Action atorvastatin 40 MG tablet 40 mg PO QHS RF: 0 metformin 500 MG tablet 500 mg PO BID RF: 0 aspirin 325 MG tablet 325 mg PO DAILY@0800 RF: 0 amlodipine 10 MG tablet 10 mg PO DAILY RF: 0 levothyroxine 125 MCG tablet 125 mcg PO DAILY RF: 0 quinapril 20 MG tablet 40 mg PO DAILY RF: 0 hydrochlorothiazide 25 MG tablet 25 mg PO DAILY RF: 0 gabapentin 100 MG capsule 200 mg PO 4X/DAY RF: 0 fluticasone propionate 1 SPRAY spray,suspension 1 spray NASAL DAILY PRN (Reason: Allergies) RF: 0 emoornge-txd-MV-lycopen-lutein 1 EACH tablet 1 ea PO DAILY RF: 0 cholecalciferol (vitamin D3) [Vitamin D3] 25 mcg (1,000 unit) Tablet 75 mcg PO DAILY RF: 0 Primary Care Provider: Maritza Grubbs Referrals: Maritza Grubbs DO [Primary Care Provider] - Disposition Disposition: Home, Self Care
[2021-07-13 14:42] LABS: Absolute Lymphocyte Count 2.54 X10^3/uL (0.83-4.51); Absolute Neutrophil Count 6.4 X10^3/uL (2.0-7.7); Basophil# 0.04 X10^3/uL; Basophil% 0.4 % (0-1); Eosinophil# 0.21 X10^3/uL; Eosinophils% 2.1 % (0-5); Hematocrit 40.5 % (37-47); Hemoglobin 13.7 g/dL (12.0-15.0); Lymphocyte # 2.54 X10^3/ul (0.83-4.51); Lymphocyte % 25.3 % (19-41); Mean Corp Hgb Conc 33.8 g/dL (32-36); Mean Corpuscular Hgb 30.4 pg (27.0-32.0); Mean Corpuscular Volume 89.8 fL (81-99); Mean Platelet Vol. 10.1 fl (6.2-12.0); NRBC Flagged by Analyzer 0 % (0-5); Neutrophil # 6.43 X10^3/uL (2.7-7.7); Platelet Count 270 K/mm3 (150-450); RBC Distribution Width CV 13.2 % (11.6-14.6); RBC Distribution Width SD 43.1 fl (35.1-43.9); Red Blood Count 4.51 M/mm3 (4.2-5.4)
--- NOTE | 2021-07-13 14:45 | RAD_ITS ---
STUDY: X-RAY CHEST REASON FOR EXAM: Female, 81 years old. Chest pain TECHNIQUE: Single AP portable view of the chest. COMPARISON: None. FINDINGS: The lungs are clear and expanded. There is no demonstrated pleural abnormality. Normal size heart. Normal mediastinum and jace. Normal visualized pulmonary arteries. Normal visualized aortic arch and descending thoracic aorta. There are diffuse degenerative changes of the visualized thoracic spine. Normal visualized ribs, clavicles, and shoulders. There is no demonstrated abnormality of the visualized soft tissue structures of the upper abdomen. RAD/Chest 1 View (Portable) IMPRESSION: No acute pulmonary process Electronically Signed: Onesimo Dorado MD at 16:50 EST ,
[2021-07-13 14:56] LABS: AST(SGOT) 21 U/L (15-37); Alanine Aminotransfer ALT/SGPT 33 U/L (13-56); Albumin, Serum 3.7 g/dL (3.2-5.0); Alkaline Phosphatase 54 U/L (45-117); Anion Gap 9 (5-15); BUN 19 mg/dL (7-18); BUN/Creat Ratio 21.9 RATIO (10-20); Calcium,Total 9.7 mg/dL (8.5-10.1); Chloride 102 mmol/L (98-107); Creatinine, Serum 0.87 mg/dL (0.55-1.02); EST Glomerular Filtration Rate 66 mL/min (>60); Est Glom Filt Rate - Afr Amer 80 mL/min (>60); Estimated Creatinine Clearance 40.11 ml/min; Globulin 3.7 g/dL (2.2-4.2); Glucose 121 mg/dL (74-106); Lipase 170 U/L (73-393); Potassium 3.8 mmol/L (3.5-5.1); Protein, Total 7.4 g/dL (6.4-8.2); Sodium Level 138 mmol/L (136-145); Troponin-I HS 8 pg/mL (3.0-54.0)
[2021-07-13 16:30] VITALS: RESP 15
[2021-07-13 17:08] VITALS: BP 146/82; PULSE 85; RESP 15; O2SAT 98
== END 2021-07-13 17:09 | disposition home or self-care (01) ==
PROVIDERS: Emergency Provider Student in an Organized Health Care Education/Training Program; PCP Internal Medicine; Visit Provider Student in an Organized Health Care Education/Training Program
DX: R10.12 Left upper quadrant pain (principal); E11.9 Type 2 diabetes mellitus without complications; N83.202 Unspecified ovarian cyst, left side; I10 Essential (primary) hypertension; E78.00 Pure hypercholesterolemia, unspecified; Z86.718 Personal history of other venous thrombosis and embolism; M19.90 Unspecified osteoarthritis, unspecified site; E07.9 Disorder of thyroid, unspecified; Z79.82 Long term (current) use of aspirin; Z79.899 Other long term (current) drug therapy; Z79.84 Long term (current) use of oral hypoglycemic drugs; Z90.49 Acquired absence of other specified parts of digestive tract
CPT/HCPCS: 71045; 74177; 80053; 83690; 84484; 85025; 93005; 99283; Q9967

== ENCOUNTER 2021-09-02 11:52 | Outpatient (CLI) | payer MEDICARE, SELFPAY ==
--- NOTE | 2021-09-02 11:54 | BI_ITS ---
MAMMOGRAPHY - BILATERAL SCREENING REASON FOR EXAM: Female, 81 years old. Routine annual screening examination. PERTINENT HISTORY: Aunt with breast cancer. Remote left stereotactic breast biopsy. TECHNIQUE: Digital bilateral breast kaykay (3D mammographic acquisition) in the CC and MLO projections. 2-D mediolateral oblique (MLO) and craniocaudad (CC) views of both breasts were obtained. CAD: Full Field Digital Mammography with Computer Added Detection was performed. COMPARISON: Comparison is made with prior study dated 07/08/2020 and 06/18/2019. FINDINGS: Breast Composition: The breasts are almost entirely fatty. There are no dominant masses or suspicious calcifications. Stable small benign-appearing bilateral axillary lymph nodes. No other significant abnormalities are identified. There has been no significant change since the prior study. BI/SCRN MAMM (CAD)W/KAYKAY BILAT IMPRESSION: Stable bilateral screening mammogram. Yearly follow-up mammogram recommended. (A) ASSESSMENT CATEGORY: BIRADS Category 2: Benign. A letter regarding these results will be sent to the patient by the facility within 30 days. Approximately 10% of breast cancers are not detected by mammography. A normal mammogram should not delay biopsy of a clinically suspicious abnormality. [id number] Electronically Signed: Jonathan Schaffer MD at 12:42 EDT ,
== END 2021-09-02 23:59 | disposition home or self-care (01) ==
LOC: OPBI 11:53
PROVIDERS: PCP Internal Medicine; Visit Provider Internal Medicine
DX: Z12.31 Encounter for screening mammogram for malignant neoplasm of breast (principal)
CPT/HCPCS: 77063; 77067

== ENCOUNTER → 2022-08-16 | Outpatient (CLI) | payer MEDICARE, SELFPAY ==
--- NOTE | 2022-08-16 12:30 | CDU_ITS ---
Reason For Study: Stenosis Rt. Velocities/BP Lt. Velocities/BP Prox CCA 76.8/11.6 cm/sec. Prox CCA 94.9/13.9 cm/sec. Mid CCA 69.2/10.7 cm/sec. Mid CCA 85.5/13.0 cm/sec. Dist CCA 67.4/11.6 cm/sec. Dist CCA 75.6/10.6 cm/sec. Prox ICA 75.4/17.0 cm/sec. Prox ICA 73.2/11.8 cm/sec. Mid ICA 89.4/19.5 cm/sec. Mid ICA 80.6/17.9 cm/sec. Dist ICA 91.7/22.1 cm/sec. Dist ICA 89.5/22.1 cm/sec. Rt. ICA/CCA = 1.3. Lt. ICA/CCA = 1.0. Prox ECA 121.1/7.9 cm/sec. Prox ECA 106.0/6.5 cm/sec. Rt. Vert. 48.7/9.4 cm/sec. Lt. Vert. 38.0/9.2 cm/sec. Right Extracranial There is homogeneous, smooth atherosclerotic plaque noted in the right common carotid artery. There is heterogeneous, irregular atherosclerotic plaque noted in the right internal carotid artery. There is heterogeneous, irregular atherosclerotic plaque noted in the right external carotid artery. Antegrade flow is noted in the right vertebral artery. Left Extracranial There is homogeneous, smooth atherosclerotic plaque noted in the left common carotid artery. There is heterogeneous, irregular atherosclerotic plaque noted in the left internal carotid artery. There is heterogeneous, irregular atherosclerotic plaque noted in the left external carotid artery. Antegrade flow is noted in the left vertebral artery. Procedure Carotid Duplex [id number]. This is a Carotid Duplex examination using B-mode, color flow and specral Doppler. The exam was diagnostic. Exam performed in department. VL/Carotid Duplex Ultrasound Interpretation Summary Mild (<50%) stenosis right extracranial internal carotid. Mild (<50%) stenosis left extracranial internal carotid. Patent and antegrade vertebrals bilaterally. Ordering Physician: Maritza Grubbs Referring Physician: Maritza Grubbs Performed By: Khanh Mcneill RVT
== END | disposition home or self-care (01) ==
LOC: CVS 12:29
PROVIDERS: PCP Internal Medicine; Referring Provider Internal Medicine; Visit Provider Internal Medicine
DX: I65.23 Occlusion and stenosis of bilateral carotid arteries (principal)
CPT/HCPCS: 93880

== ENCOUNTER → 2022-10-05 | Outpatient (CLI) | payer MEDICARE, SELFPAY ==
--- NOTE | 2022-10-05 13:26 | BI_ITS ---
MAMMOGRAPHY - BILATERAL SCREENING REASON FOR EXAM: Female, 82 years old. Routine annual screening examination. PERTINENT HISTORY: Aunt with breast cancer. Remote left stereotactic breast biopsy. TECHNIQUE: Digital bilateral breast kaykay (3D mammographic acquisition) in the CC and MLO projections. 2-D mediolateral oblique (MLO) and craniocaudad (CC) views of both breasts were obtained. CAD: Full Field Digital Mammography with Computer Added Detection was performed. COMPARISON: Comparison is made with prior study dated September 02, 2021 and July 08, 2020. FINDINGS: Breast Composition: The breasts are almost entirely fatty. There are no dominant masses or suspicious calcifications. Stable small benign-appearing bilateral axillary lymph nodes. No other significant abnormalities are identified. There has been no significant change since the prior study. BI/SCRN MAMM (CAD)W/KAYKAY BILAT IMPRESSION: Stable bilateral screening mammogram. Yearly follow-up mammogram recommended. (A) ASSESSMENT CATEGORY: BIRADS Category 2: Benign. A letter regarding these results will be sent to the patient by the facility within 30 days. Approximately 10% of breast cancers are not detected by mammography. A normal mammogram should not delay biopsy of a clinically suspicious abnormality. [id number] Electronically Signed: Jonathan Schaffer MD at 14:39 EDT ,
--- NOTE | 2022-10-05 13:33 | BD_ITS ---
STUDY: DUAL ENERGY X-RAY ABSORPTIOMETRY / DXA REASON FOR EXAM: Female, 82 years old. [id number] TECHNIQUE: Bone Mineral Density (BMD) measurements of lumbar spine and right hip were obtained. COMPARISON: Comparison is made with prior study dated July 08, 2020. FINDINGS: Lumbar Spine (L1-L4): g/cm2 (1.114) / T-score (1.2) / Z-score (3.8) Findings are suggestive of normal bone density with a low fracture risk. Right Femur Total: g/cm2 (0.770) / T-score (-1.4) / Z-score (0.8) Right Femoral Neck: g/cm2 (0.635) / T-score (-1.9) / Z-score (0.5) The T-Scores on the most recent prior examination were: Lumbar Spine (L1-L4): There has been worsening of bone density since the previous examination. Left Femur Total: which represents an improvement of 1.1%. Right Femur Total: which represents an improvement of 1.1%. BD/Dexa Bone Density Study IMPRESSION: The patient is considered osteopenic as outlined below according to World Wei Organization (WHO) criteria with a moderate fracture risk. There has been improvement of bone density since the previous examination. Reference Information: The T-score is the number of standard deviations above or below the standard which is normal for young adults at their peak bone mineral density. The World Health Organization (WHO) interprets the T-scores as follows: Above -1 Normal bone density Between -1 and -2.5 Osteopenia Equal to / or below -2.5 Osteoporosis As a practical clinical guideline, osteopenia may be graded as follows: Mild -1 through -1.5 Moderate -1.6 through -2.0 Severe -2.1 through -2.4 The Z-score is the number of standard deviations above or below age-matched controls. A Z-score of less than -1.5 would be considered abnormal. References: 1. NIH Osteoporosis and Related Bone Diseases www osteo.org 2. International Society for Clinical Densitometry www iscd.org 3. National Osteoporosis Foundation www nof.org Electronically Signed: Jonathan Schaffer MD at 9:31 EDT ,
== END | disposition home or self-care (01) ==
PROVIDERS: PCP Internal Medicine; Referring Provider Internal Medicine; Visit Provider Internal Medicine
DX: Z12.31 Encounter for screening mammogram for malignant neoplasm of breast (principal); Z78.0 Asymptomatic menopausal state; Z80.3 Family history of malignant neoplasm of breast
CPT/HCPCS: 77063; 77067; 77080

== ENCOUNTER 2023-03-20 22:52 | Emergency (ER) | payer MEDICARE, SELFPAY ==
[2023-03-20 22:53] VITALS: BP 127/76; PULSE 92; RESP 15; TEMP 36.3; O2SAT 98
[2023-03-20 22:58] VITALS: BMI 36.7
--- NOTE | 2023-03-20 23:36 | CT_ITS ---
INDICATION: headache EXAMINATION: CT BRAIN - CT Head or Brain W/O Contrast Injection TECHNIQUE: Multiple axial images were obtained of the head with sagittal and coronal reconstructed images. Individualized dose optimization techniques were used for this CT. IV contrast dosage and agent: None. COMPARISON: None. FINDINGS: BRAIN PARENCHYMA: No evidence of an acute infarct or intracranial hemorrhage. No evidence of a mass. White matter changes consistent with mild chronic microvascular disease. CSF SPACES: The ventricles, sulci and subarachnoid cisterns are appropriate for age. CALVARIUM, SKULL BASE, PARANASAL SINUSES AND MASTOID AIR CELLS: No fracture. Mastoid air cells are clear. Visualized paranasal sinuses are unremarkable. ORBITS: The globes, extraocular muscles, optic nerves and retrobulbar fat are unremarkable. CT/Brain/Head without Contrast IMPRESSION: No acute intracranial abnormality. Electronically Signed: Herman Owens DO at 0:28 EDT ,
[2023-03-20 23:45] LABS: Bedside Glucose 192 mg/dL (74-106)
--- NOTE | 2023-03-21 | RAD_ITS ---
INDICATION: cough EXAMINATION/TECHNIQUE: X-RAY - XR Chest 1 View COMPARISON: 07/13/2021. FINDINGS: LINES/DEVICES: None. LUNGS: No consolidation or evidence of an effusion. No evidence of edema or a pneumothorax. MEDIASTINUM AND CARDIOVASCULAR STRUCTURES: Cardiac silhouette is normal in size and contour. Mediastinum is unremarkable. BONES AND SOFT TISSUES: No acute abnormality. RAD/Chest 1 View (Portable) IMPRESSION: No evidence of acute cardiopulmonary disease. Electronically Signed: Herman Owens DO at 0:47 EDT ,
[2023-03-21] MEDS: 0.9% Normal Saline (500mL Bag) 500 ML 999 ML IV (00:03)
[2023-03-21] MEDS: Morphine 2 MG/ML Syringe IV (00:03)
[2023-03-21] MEDS: Ondansetron 4 MG/2 ML Vial IV (00:03)
[2023-03-21 00:05] LABS: Anion Gap 8 (5-15); BUN 26 mg/dL (7-18); BUN/Creat Ratio 23.6 RATIO (10-20); Calcium,Total 9.3 mg/dL (8.5-10.1); Chloride 106 mmol/L (98-107); EST Glomerular Filtration Rate 50 mL/min (>60); Est Glom Filt Rate - Afr Amer 61 mL/min (>60); Estimated Creatinine Clearance 30.65 ml/min; Glucose 202 mg/dL (74-106); Magnesium 1.4 mg/dL (1.6-2.6); Potassium 3.9 mmol/L (3.5-5.1); Sodium Level 140 mmol/L (136-145)
[2023-03-21 00:07] LABS: Absolute Lymphocyte Count 2.82 X10^3/uL (0.83-4.51); Absolute Neutrophil Count 9.2 X10^3/uL (2.0-7.7); Basophil# 0.07 X10^3/uL; Basophil% 0.5 % (0-1); Hematocrit 38.2 % (37-47); Hemoglobin 12.5 g/dL (12.0-15.0); Lymphocyte # 2.82 X10^3/ul (0.83-4.51); Mean Corp Hgb Conc 32.7 g/dL (32-36); Mean Corpuscular Hgb 30.2 pg (27.0-32.0); Mean Corpuscular Volume 92.3 fL (81-99); Mean Platelet Vol. 10.3 fl (6.2-12.0); Monocyte# 0.85 X10^3/uL; Monocyte% 6.3 % (0-10); NRBC Flagged by Analyzer 0 % (0-5); Neutrophil # 9.16 X10^3/uL (2.7-7.7); Neutrophil % 68.3 % (47-70); Platelet Count 268 K/mm3 (150-450); RBC Distribution Width CV 13.3 % (11.6-14.6); RBC Distribution Width SD 45.1 fl (35.1-43.9); Red Blood Count 4.14 M/mm3 (4.2-5.4); White Blood Count 13.4 K/mm3 (4.4-11.0)
[2023-03-21 00:38] LABS: Bacteria 0 SEEN /hpf (None Seen); Mucous, Urine 0 SEEN /hpf (<or=2+); Red Blood Cells-Urine 0 SEEN /hpf (0-5); Squamous Epithelial Cells - UA 0 SEEN /hpf (5-10); White Blood Cells 0 SEEN /hpf (0-5)
[2023-03-21 00:45] VITALS: BP 131/79; PULSE 75; RESP 12; O2SAT 98
[2023-03-21 01:20] LABS: Color, Urine Yellow (Yellow); Glucose, Dipstick 250 mg/dl (Normal); Ketone-Dipstick 15 mg/dl (Negative); Leukocyte Esterase-Dipstick 25 /ul (Negative); Nitrite-Dipstick Negative (Negative); Occult Blood-Urine 10 /ul (Negative); Protein-Dipstick 30 mg/dl (Negative); Specific Gravity, Urine 1.025 (1.002-1.030); Urine Bilirubin Dipstick Negative (Negative); Urine Clarity Clear (Clear); Urine Urobilinogen Normal (Normal)
[2023-03-21 01:50] VITALS: BP 141/57; PULSE 85; RESP 13; O2SAT 96
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
[2023-03-21 02:54] VITALS: BP 110/94; PULSE 84; RESP 13; O2SAT 16
== END 2023-03-21 03:01 | disposition home or self-care (01) ==
PROVIDERS: Emergency Provider Emergency Medicine; PCP Internal Medicine; Visit Provider Emergency Medicine
DX: R51.9 Headache, unspecified (principal); E11.9 Type 2 diabetes mellitus without complications; E78.00 Pure hypercholesterolemia, unspecified; I10 Essential (primary) hypertension; Z79.899 Other long term (current) drug therapy; Z79.82 Long term (current) use of aspirin; Z79.84 Long term (current) use of oral hypoglycemic drugs; Z90.49 Acquired absence of other specified parts of digestive tract; Z98.41 Cataract extraction status, right eye; Z98.42 Cataract extraction status, left eye; R68.83 Chills (without fever)
CPT/HCPCS: 70450; 71045; 80048; 81001; 82962; 83735; 85025; 87428; 96361; 96374; 96375; 99285; J7040; P9612; A4216; J2405

== ENCOUNTER → 2023-03-21 | Outpatient (CLI) | payer MEDICARE, SELFPAY ==
[2023-03-21 16:24] LABS: Bacteria 0 SEEN /hpf (None Seen); Mucous, Urine 0 SEEN /hpf (<or=2+); Red Blood Cells-Urine 0 SEEN /hpf (0-5); White Blood Cells 0 SEEN /hpf (0-5)
[2023-03-21 16:52] LABS: Color, Urine Yellow (Yellow); Glucose, Dipstick Normal (Normal); Ketone-Dipstick Negative (Negative); Leukocyte Esterase-Dipstick Negative /ul (Negative); Nitrite-Dipstick Negative (Negative); Occult Blood-Urine Negative /ul (Negative); Protein-Dipstick Negative (Negative); Urine Bilirubin Dipstick Negative (Negative); Urine Clarity Clear (Clear); Urine Urobilinogen Normal (Normal)
[2023-03-21 16:58] LABS: Absolute Neutrophil Count 7.5 X10^3/uL (2.0-7.7); Basophil# 0.06 X10^3/uL; Basophil% 0.5 % (0-1); Eosinophil# 0.13 X10^3/uL; Eosinophils% 1.2 % (0-5); Hematocrit 37.5 % (37-47); Hemoglobin 12.2 g/dL (12.0-15.0); Lymphocyte % 23.2 % (19-41); Mean Corp Hgb Conc 32.5 g/dL (32-36); Mean Corpuscular Hgb 30.2 pg (27.0-32.0); Mean Corpuscular Volume 92.8 fL (81-99); Monocyte# 0.87 X10^3/uL; Monocyte% 7.8 % (0-10); NRBC Flagged by Analyzer 0 % (0-5); Neutrophil # 7.51 X10^3/uL (2.7-7.7); Neutrophil % 66.9 % (47-70); Platelet Count 264 K/mm3 (150-450); RBC Distribution Width CV 13.2 % (11.6-14.6); Red Blood Count 4.04 M/mm3 (4.2-5.4); White Blood Count 11.2 K/mm3 (4.4-11.0)
[2023-03-21 17:16] LABS: Erythrocyte Sedimentation Rate 29 mm/hr (0-30)
[2023-03-21 17:30] LABS: ALB/GLOB Ratio 0.9 RATIO (0.9-2.4); AST(SGOT) 18 U/L (15-37); Alanine Aminotransfer ALT/SGPT 25 U/L (13-56); Albumin, Serum 3.4 g/dL (3.2-5.0); Alkaline Phosphatase 49 U/L (45-117); Anion Gap 5 (5-15); BUN 17 mg/dL (7-18); BUN/Creat Ratio 18.7 RATIO (10-20); CRP 6.17 mg/L (0.0-3.0); Calcium,Total 9.1 mg/dL (8.5-10.1); Chloride 105 mmol/L (98-107); Creatinine, Serum 0.91 mg/dL (0.55-1.02); EST Glomerular Filtration Rate 63 mL/min (>60); Est Glom Filt Rate - Afr Amer 76 mL/min (>60); Globulin 3.8 g/dL (2.2-4.2); Glucose 165 mg/dL (74-106); Potassium 3.9 mmol/L (3.5-5.1); Protein, Total 7.2 g/dL (6.4-8.2); Sodium Level 138 mmol/L (136-145)
[2023-03-21 17:59] LABS: Squamous Epithelial Cells - UA 0-5 SEEN /hpf (5-10)
== END | disposition home or self-care (01) ==
LOC: LAB 16:20
PROVIDERS: PCP Internal Medicine; Visit Provider Internal Medicine
DX: R41.82 Altered mental status, unspecified (principal)
CPT/HCPCS: 36415; 80053; 81001; 85025; 85652; 86140

== ENCOUNTER → 2023-04-30 | Outpatient (CLI) | payer MEDICARE, SELFPAY | END | disposition home or self-care (01) | PROVIDERS: PCP Internal Medicine; Visit Provider Nurse Practitioner Family | DX: R51.9 Headache, unspecified (principal) ==

== ENCOUNTER 2023-08-07 19:32 | Inpatient (IN) | payer MEDICARE, SELFPAY ==
[2023-08-07 19:34] VITALS: BP 155/58; PULSE 91; RESP 18; TEMP 36.9; O2SAT 97; BMI 34.2
--- NOTE | 2023-08-07 19:45 | EKG12_ITS ---
Test Reason : HEADACHE Blood Pressure : / mmHG Vent. Rate : 080 BPM Atrial Rate : 080 BPM P-R Int : 212 ms QRS Dur : 088 ms QT Int : 380 ms P-R-T Axes : 055 -49 042 degrees QTc Int : 438 ms Sinus rhythm with 1st degree A-V block Left axis deviation Abnormal ECG Confirmed by Franco Cruz ([id number]), photography editor GALI LOWE ([id number]) on 08/08/2023 9:44:11 AM Referred By: VISHNU Confirmed By:Franco Cruz
--- NOTE | 2023-08-07 20:05 | CT_ITS ---
INDICATION: confusion EXAMINATION: CT BRAIN - CT Head or Brain W/O Contrast Injection TECHNIQUE: Multiple axial images were obtained of the head without intravenous contrast. A radiation dose optimization technique was used for this scan. IV Contrast dosage and agent: None. COMPARISON: 03/21/2023 FINDINGS: BRAIN PARENCHYMA: No intra- or extra-axial hemorrhage. No evidence of acute infarct. No intracranial mass or mass effect. There is preservation of the [place]/white matter interface. Posterior fossa structures are unremarkable. Stable volume loss with low attenuation of the periventricular white matter typical of chronic small vessel disease. CSF SPACES: Stable. No hydrocephalus. Basal cisterns are patent. CALVARIUM, SKULL BASE, PARANASAL SINUSES AND MASTOID AIR CELLS: Clear. No discrete lytic or blastic abnormalities. CT/Brain/Head without Contrast IMPRESSION: Volume loss with chronic white matter changes. No acute intracranial findings. Electronically Signed: Jaime Parham MD at 21:01 EST ,
--- NOTE | 2023-08-07 20:08 | RAD_ITS ---
INDICATION: chest pain EXAMINATION/TECHNIQUE: X-RAY - portable upright AP chest x-ray COMPARISON: 03/21/2023 FINDINGS: LINES/DEVICES: None. LUNGS: 13 mm nodular density projects over the right eighth posterior rib. No consolidations, vascular congestion or pleural effusions. MEDIASTINUM AND CARDIOVASCULAR STRUCTURES: Cardiac silhouette stable within normal limits. BONES AND SOFT TISSUES: No acute changes. RAD/Chest 1 View (Portable) IMPRESSION: No radiographic evidence of acute cardiopulmonary disease. Possible 13 mm pulmonary nodule right lower lung field. Recommend follow-up chest CT for further evaluation and to exclude parenchymal nodule, possible neoplasia. Electronically Signed: Jaime Parham MD at 21:07 EST ,
[2023-08-07 20:32] VITALS: O2SAT 95
[2023-08-07 20:33] VITALS: BP 132/51; PULSE 81; RESP 16; O2SAT 98
[2023-08-07 20:46] LABS: Absolute Lymphocyte Count 1.32 X10^3/uL (0.83-4.51); Absolute Neutrophil Count 10.4 X10^3/uL (2.0-7.7); Basophil# 0.05 X10^3/uL; Basophil% 0.4 % (0-1); Eosinophil# 0.03 X10^3/uL; Eosinophils% 0.2 % (0-5); Hematocrit 38.1 % (37-47); Hemoglobin 12.7 g/dL (12.0-15.0); Lymphocyte # 1.32 X10^3/ul (0.83-4.51); Lymphocyte % 10.6 % (19-41); Mean Corp Hgb Conc 33.3 g/dL (32-36); Mean Corpuscular Hgb 29.6 pg (27.0-32.0); Mean Corpuscular Volume 88.8 fL (81-99); Mean Platelet Vol. 9.5 fl (6.2-12.0); Monocyte# 0.67 X10^3/uL; Monocyte% 5.4 % (0-10); NRBC Flagged by Analyzer 0 % (0-5); Neutrophil # 10.37 X10^3/uL (2.7-7.7); Platelet Count 296 K/mm3 (150-450); RBC Distribution Width CV 13.2 % (11.6-14.6); Red Blood Count 4.29 M/mm3 (4.2-5.4); White Blood Count 12.5 K/mm3 (4.4-11.0)
[2023-08-07 21:00] VITALS: BP 132/59; PULSE 77; RESP 12; O2SAT 95
[2023-08-07 21:06] LABS: Anion Gap 6 (5-15); BUN 16 mg/dL (7-18); BUN/Creat Ratio 17.6 RATIO (10-20); Calcium,Total 9.5 mg/dL (8.5-10.1); Chloride 102 mmol/L (98-107); Creatinine, Serum 0.91 mg/dL (0.55-1.02); EST Glomerular Filtration Rate 63 mL/min (>60); Est Glom Filt Rate - Afr Amer 76 mL/min (>60); Glucose 189 mg/dL (74-106); Sodium Level 134 mmol/L (136-145); Troponin-I HS (w/2H Reflex) 464 pg/mL (3.0-54.0)
--- NOTE | 2023-08-07 21:34 | EDS_ITS ---
HPI History of Present Illness Chief Complaint: Headache Detail of Chief Complaint: Chest pain Informant: patient Onset/Context/Timing Onset: Today Activity at onset: gradual Quality: Positive for Aching Location: Substernal Current Severity: Mild Maximum Severity: Mild Worsened By: Nothing Relieved By: Nothing Associated Symptoms: Negative for Nausea, Vomiting, Diaphoresis, Dyspnea, Cough, Fever, Lightheadedness, Acid Reflux or Palpitations Narrative Narrative: 83-year-old female history of diabetes, hypertension high cholesterol. Yesterday she just felt confused and headache. Today she noted chest pressure across her chest. She has no cardiac history. She denies any prior cardiac workup. States it is across her anterior chest. She denies any dyspnea or nausea nor any diaphoresis. Prior Similar Symptoms: No Recent Illness/Hospitalization: No CVD Risk Factors: Positive for Hypertension, Diabetes and Hypercholesterolemia PE Risk Factors: Positive for Prior DVT or PE; Negative for Recent Travel/Surgery, Recent Immobilization, Cancer or OCP + Smoking + >/=35 TAD Risk Factors: Negative for Marfan's Syndrome PFSH PFS Medical History Arthritis Back pain Bladder disease Diabetes Dietary restriction DVT (deep venous thrombosis) [place] filter in place High cholesterol History of pain when walking History of stress test Hx of fracture of left hip Hypertension Leg cramps Loss of consciousness Non-smoker Thyroid disease Home Medications amlodipine 10 mg tablet 10 mg PO DAILY 04/03/20 [History Last Taken 03/08/21 04:00] aspirin 325 mg tablet,delayed release 325 mg PO DAILY@0800 04/03/20 [History Last Taken Unknown] atorvastatin 40 mg tablet 40 mg PO QHS 04/03/20 [History Last Taken Unknown] fluticasone propionate 50 mcg/actuation nasal spray,suspension 1 spray NASAL DAILY PRN Allergies 04/03/20 [History Last Taken Unknown] gabapentin 100 mg capsule 100 mg PO Q4H PRN PRN pain 04/03/20 [History Last Taken 03/08/21 04:00] hydrochlorothiazide 25 mg tablet 25 mg PO DAILY 04/03/20 [History Last Taken Unknown] levothyroxine 125 mcg tablet 125 mcg PO DAILY 04/03/20 [History Last Taken 03/08/21 04:00] metformin 500 mg tablet 1,000 mg PO BID 04/03/20 [History Last Taken Unknown] afoqmjsx-rps-xczqd acid 0.4 mg-lycopene 300 mcg-lutein 250 mcg tablet 1 ea PO DAILY 04/03/20 [History Last Taken Unknown] quinapril 20 mg tablet 40 mg PO DAILY 04/03/20 [History Last Taken 03/08/21 04:00] cholecalciferol (vitamin D3) 25 mcg (1,000 unit) tablet (Vitamin D3) 5,000 unit PO DAILY 03/02/21 [History Last Taken Unknown] meloxicam 7.5 mg tablet 7.5 mg PO 03/20/23 [History Last Taken Unknown] hydrocodone-acetaminophen 5-325mg 5mg-325mg 1 tab PO Q6H PRN PRN Pain 3 days #12 TABLETS 03/21/23 [Rx Last Taken Unknown] lisinopril 40 mg tablet 40 mg PO DAILY 08/07/23 [History Last Taken Unknown] omeprazole magnesium 20 mg tablet,delayed release (Prilosec OTC) 20 mg PO DAILY 08/07/23 [History Last Taken Unknown] Allergy/AdvReac Type Severity Reaction Status Date / Time lidocaine Allergy Mild pain Verified 08/07/23 19:38 nabumetone Allergy PT UNSURE Verified 08/07/23 19:38 OF REACTION propoxyphene Allergy PT UNSURE Verified 08/07/23 19:38 [From Darvocet-N] OF REACTION rosiglitazone [From Avandia] Allergy PT UNSURE Verified 08/07/23 19:33 OF REACTION saxagliptin [From Onglyza] Allergy PT UNSURE Verified 08/07/23 19:33 OF REACTION simvastatin [From Zocor] Allergy PT UNSURE Verified 08/07/23 19:38 OF REACTION terbinafine [From Lamisil] Allergy PT UNSURE Verified 08/07/23 19:33 OF REACTION tramadol Allergy PT UNSURE Verified 08/07/23 19:33 OF REACTION warfarin [From Coumadin] Allergy PT UNSURE Verified 08/07/23 19:33 OF REACTION celecoxib [From Celebrex] AdvReac DIZZINESS Verified 08/07/23 19:33 prednisone AdvReac HEAD GETS Verified 08/07/23 19:33 FUZZY Surgical History History of axillary surgery History of [place] fundoplication Hx laparoscopic cholecystectomy Hx of colonoscopy Hx of left cataract extraction Hx of right cataract extraction Social History Smoking Status: Never smoker ROS ROS ED ROS Narrative Chest pain. Headache. Review of Systems ROS Unobtainable: Denies due to encephalopathy Constitutional Constitutional ED: Denies chills or fever(s) Eyes Eyes: Reports none ENT ENT ED: Denies ear pain Cardiovascular Cardiovascular: Reports as per HPI and chest pain; Denies palpitations or racing heartbeat Respiratory/Chest Respiratory/Chest: Denies cough, dyspnea or dyspnea on exertion Gastrointestinal Gastrointestinal: Denies abdominal pain, constipation, diarrhea, melena, nausea or vomiting Musculoskeletal Musculoskeletal: Denies arthralgias, back pain or myalgias Integumentary Denies abscess or Abrasions Neurologic Neurologic: Reports headache(s) Psychiatric Psychiatric: Denies anxiety or depression Endocrine Endocrinology: Denies cold intolerance Hematologic/Lymphatic Hematologic/Lymphatic: Denies easy bleeding, easy bruising or lymphadenopathy Allergic/Immunologic Allergic/Immunologic ED: Denies mouth swelling, tongue swelling or urticaria EXAM Physical Exam Narrative Exam Narrative: 83-year-old female vital signs are stable afebrile. Pulse ox 97% on room air no signs hypoxia. No distress. Daughter at bedside. H EENT exam unremarkable. Neck nontender JVD. Lungs clear to auscultation bilateral. Heart regular rhyth m rate about 80 no murmur. Chest wall and ribs nontender. Abdomen soft nontender. Moving all 4 extremities. Nontender no edema no cords. Neurologically she is awake alert no focal motor deficits. Const Vital Signs: 08/07/23 19:34 08/07/23 20:32 08/07/23 20:33 Temperature 98.4 F Temperature Source Temporal Pulse Rate 91 81 Respiratory Rate 18 16 Respiratory Effort Blood Pressure 155/58 H 132/51 H Blood Pressure Mean 90 78 Pulse Ox 97 95 98 Oxygen Delivery Method Room Air Room Air Room Air 08/07/23 20:34 08/07/23 21:00 08/07/23 21:44 Temperature 97.6 F L Temperature Source Pulse Rate 77 80 Respiratory Rate 12 16 Respiratory Effort Normal Non-Labored Blood Pressure 132/59 H 140/89 H Blood Pressure Mean 83 106 Pulse Ox 95 96 Oxygen Delivery Method Room Air Positive well nourished and well developed; Negative for cachectic, contractures or unkempt General Appearance ED: well developed and NAD; Negative for unkempt, cachectic, contractures or pallor Nutritional Appearance: Negative for cachectic HEENT Reports moist mucous membranes normocephalic and atraumatic; Negative for trauma or tenderness Eyes PERRL and EOMs intact bilaterally General Eye ED: Negative for pale conjunctiva or scleral icterus Neck no lymphadenopathy, supple and no JVD General: Negative for tenderness Chest Wall inspection of chest normal and palpation of chest normal Chest: Negative for tenderness Resp normal respiratory effort and clear to auscultation bilaterally Effort and Inspection: Negative for respiratory distress Auscultation: Negative for rales, rhonchi or wheezes Cardio regular rate, regular rhythm, S1 normal heart sound, S2 normal heart sound and no murmurs Rate: Negative for bradycardia or tachycardic Rhythm: Negative for abnormal rhythm Peripheral Pulses: pulses 2+ throughout GI normal to inspection, nondistended, normoactive bowel sounds, soft to palpation, non-tender, non-distended and no masses Back/Spine no CVA tenderness and no thoracic nor lumbar tenderness General Back: Negative for CVA tenderness Cervical Spine: Negative for cervical spine tenderness Extremity normal to inspection General Extremety ED: Negative for edema, pulses abnormal or tenderness General Extremity: Negative for edema or pulses abnormal Neuro oriented x3 and CN's II-XII intact bilaterally Sensorium / Orientation: awake, alert, oriented to person, oriented to place and oriented to time; Negative for confused, lethargic or stuporous Motor Exam: strength 5/5 throughout Psych mental status grossly normal Appearance: Negative for unkempt Attitude: No agitated Mood & Affect: Negative for depressed, anxious or tearful Skin no rashes or lesions noted and no wounds General Skin Exam: Negative for jaundice or pallor Rashes: No rashes noted Trauma: Negative for abrasion or laceration Heart Score History: Moderately Suspicious Age: >/= 65 years Risk Factors: >/= 3 Risk Factors or History of CAD Troponin: >/=3 x Normal Limit Score: 7 MDM MDM MDM Narrative Medical decision making narrative: 83-year-old female with chest pain that is concerning. However she has not had any recent exertional chest pain or exertional dyspnea. Patient has an elevated troponin. She will be admitted for further evaluation for her non-ST elevation MS. She and family are aware. Hospitalist has been paged. Patient will be given heparin bolus and drip due to her non-ST elevation MS and elevated troponin. Patient will be admitted to the PCU. History & Record Review Discussion w/independent historian: Patient Additional record(s) reviewed:: Prior inpatient record, Prior outpatient record, Prior ED visit and Prior labs Lab Data Attestation: I reviewed the patient's lab results. Lab results narrative: CBC shows white count 12.5. H&H 12.7 and 38. Platelets 296. Electrolytes show sodium 134. Gap 6. Normal BUN and creatinine. Glucose 189. Troponin elevated 464. Portable chest x-ray unremarkable. Except chronic changes and possibly right lower lobe nodule. Labs: Laboratory Results - last 24 hr 08/07/23 20:35 WBC 12.5 H RBC 4.29 Hgb 12.7 Hct 38.1 MCV 88.8 MCH 29.6 MCHC 33.3 RDW Std Deviation 43.0 RDW Coeff of Blanche 13.2 Plt Count 296 MPV 9.5 Immature Gran % (Auto) 0.400 Neut % (Auto) 83.0 H Lymph % (Auto) 10.6 L [place] % (Auto) 5.4 Eos % (Auto) 0.2 Baso % (Auto) 0.4 Absolute Neuts (auto) 10.4 H Absolute Lymphs (auto) 1.32 Nucleated RBC % 0 Sodium 134 L Potassium 4.0 Chloride 102 Carbon Dioxide 26.0 Anion Gap 6 BUN 16 Creatinine 0.91 Estim Creat Clear Calc 47.30 Est GFR (MDRD) Af Amer 76 Est GFR (MDRD) Non-Af 63 BUN/Creatinine Ratio 17.6 Glucose 189 H Calcium 9.5 Troponin I High Sens 464 H* Radiography Chest X-Ray - ED: 1 View, Read by ED Physician, Read by Radiologist, Heart, Lungs, Mediastinum, Bony Structures and Chronic Changes Diagnostic Testing: Clinical Impression(s) from Imaging Studies Brain CT 08/07/23 20:05 IMPRESSION: Volume loss with chronic white matter changes. No acute intracranial findings. Electronically Signed: Jaime Parham MD at 21:01 EST , Chest X-Ray 08/07/23 20:08 IMPRESSION: No radiographic evidence of acute cardiopulmonary disease. Possible 13 mm pulmonary nodule right lower lung field. Recommend follow-up chest CT for further evaluation and to exclude parenchymal nodule, possible neoplasia. Electronically Signed: Jaime Parham MD at 21:07 EST Reading Location ID and State: [facility] / [place] Tel , Service support , Chest x-ray portable, single view, interpreted myself and radiologist. Normal cardiac silhouette. Normal mediastinum. Right lower lobe may have a nodule. No infiltrate. No effusions. Rhythm Strip Rhythm Strip: Sinus Rhythm Rate: 80 Ectopy: None EKG Initial EKG: Attestation: I personally reviewed and interpreted this EKG as follows: Interpretation: Sinus Rhythm and No Acute Injury Pattern Comments: Normal sinus rhythm rate of 80 no acute signs of ST elevation, MS or ischemia. First-degree AV block parable of 212. Discharge Plan Dx/Rx/DC Orders Clinical Impression: History of borderline diabetes mellitus, Non-ST elevated myocardial infarction, History of hypertension, Chest pain Disposition Disposition: Acute Care Hospital [facility]
[2023-08-07 21:44] VITALS: BP 140/89; PULSE 80; RESP 16; TEMP 36.4; O2SAT 96
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
[2023-08-07 22:13] LABS: Magnesium 1.3 mg/dL (1.6-2.6)
[2023-08-07] MEDS: Heparin Injection (Vial) 5,000 UNIT/ML VIAL 4000 UNIT IV (22:26)
[2023-08-07] MEDS: HEPARIN/D5w 25,000 UNITS 25,000 UNITS/250 ML IV.SOLN. 10 UNITS CONT INF (22:32)
[2023-08-07 22:44] LABS: Reflex Troponin-HS? (from REC) Y
[2023-08-07 22:48] VITALS: BP 131/71; PULSE 75; RESP 16; TEMP 37.3; O2SAT 97
--- NOTE | 2023-08-07 22:49 | EKG12_ITS ---
Test Reason : admit EKG, morning EKG Blood Pressure : / mmHG Vent. Rate : 080 BPM Atrial Rate : 080 BPM P-R Int : 200 ms QRS Dur : 092 ms QT Int : 396 ms P-R-T Axes : 047 -49 041 degrees QTc Int : 456 ms Sinus rhythm with Premature atrial complexes Left axis deviation Abnormal ECG When compared with ECG of 07-AUG-2023 21:42, MANUAL COMPARISON REQUIRED, DATA IS UNCONFIRMED Confirmed by Franco Cruz ([id number]), editor continuity and script GALI LOWE ([id number]) on 08/08/2023 1:33:27 PM Referred By: Confirmed By:Franco Cruz
[2023-08-07 22:50] VITALS: BMI 34.2
[2023-08-07] MEDS: Atorvastatin Calcium 40 MG Tablet PO (23:41)
[2023-08-07] MEDS: 0.9% Normal Saline (1000mL) 1,000 ML 75 ML IV (23:51)
[2023-08-08] VITALS (9 sets, daily range): BP systolic 116–136; BP diastolic 58–67; PULSE 62–76; RESP 16–18; TEMP 36.4–36.9; O2SAT 93–95; BMI 30.3
[2023-08-08 00:30] LABS: Troponin-I HS 697 pg/mL (3.0-54.0)
[2023-08-08 00:36] LABS: Bedside Glucose 169 mg/dL (74-106)
[2023-08-08] MEDS: Magnesium Sulfate 2 GM in Dextrose 5%-Water (100mL Bag) 100 ML IV (02:05)
[2023-08-08] MEDS: 0.9% Saline Lock 10 ML Syringe IV ×4 (02:05→13:14)
[2023-08-08 03:54] LABS: Absolute Lymphocyte Count 2.82 X10^3/uL (0.83-4.51); Absolute Neutrophil Count 6.2 X10^3/uL (2.0-7.7); Basophil# 0.04 X10^3/uL; Basophil% 0.4 % (0-1); Eosinophil# 0.07 X10^3/uL; Eosinophils% 0.7 % (0-5); Hematocrit 34.7 % (37-47); Hemoglobin 11.6 g/dL (12.0-15.0); Lymphocyte # 2.82 X10^3/ul (0.83-4.51); Lymphocyte % 28.4 % (19-41); Mean Corp Hgb Conc 33.4 g/dL (32-36); Mean Corpuscular Hgb 29.3 pg (27.0-32.0); Mean Corpuscular Volume 87.6 fL (81-99); Mean Platelet Vol. 9.7 fl (6.2-12.0); Monocyte# 0.79 X10^3/uL; NRBC Flagged by Analyzer 0 % (0-5); Neutrophil # 6.19 X10^3/uL (2.7-7.7); Neutrophil % 62.3 % (47-70); Platelet Count 284 K/mm3 (150-450); RBC Distribution Width CV 13.2 % (11.6-14.6); RBC Distribution Width SD 42.5 fl (35.1-43.9); Red Blood Count 3.96 M/mm3 (4.2-5.4); White Blood Count 9.9 K/mm3 (4.4-11.0)
[2023-08-08 04:21] LABS: Troponin-I HS 978 pg/mL (3.0-54.0)
[2023-08-08 04:27] LABS: ALB/GLOB Ratio 0.9 RATIO (0.9-2.4); AST(SGOT) 18 U/L (15-37); Alanine Aminotransfer ALT/SGPT 17 U/L (13-56); Albumin, Serum 3.3 g/dL (3.2-5.0); Alkaline Phosphatase 49 U/L (45-117); Anion Gap 8 (5-15); BUN 12 mg/dL (7-18); Calcium,Total 9.4 mg/dL (8.5-10.1); Chloride 106 mmol/L (98-107); Cholesterol 126 mg/dL (200); Creatinine, Serum 0.75 mg/dL (0.55-1.02); EST Glomerular Filtration Rate 79 mL/min (>60); Est Glom Filt Rate - Afr Amer 95 mL/min (>60); Estimated Creatinine Clearance 50.62 ml/min; Globulin 3.6 g/dL (2.2-4.2); Glucose 145 mg/dL (74-106); High Density Lipoprotein 56 mg/dL; Magnesium 2.2 mg/dL (1.6-2.6); Potassium 3.6 mmol/L (3.5-5.1); Protein, Total 6.9 g/dL (6.4-8.2); Sodium Level 140 mmol/L (136-145); Triglycerides 103 mg/dL; Very Low Density Lipoprotein 21 mg/dL (5-40)
--- NOTE | 2023-08-08 05:55 | ECHOD_ITS ---
Reason For Study: NSTEMI Procedure This was a 2D Doppler, Color Flow transthoracic echocardiogram. Exam performed portable in patient room. Left Ventricle Normal size and thickness. The left ventricular ejection fraction is 65 %. Diastolic function is indeterminate. Right Ventricle Normal right ventricle. Atria There is mild biatrial dilatation. Mitral Valve Severe mitral annular calcification. Mild (1+) mitral valve insufficiency. Tricuspid Valve Trivial tricuspid valve insufficiency. Unable to estimate RV systolic pressure due to insufficient tricuspid regurgitant envelope. Aortic Valve Aortic sclerosis, no stenosis. Pulmonic Valve The pulmonic valve is not well visualized. Great Vessels Normal sized aortic root. Pericardium/Pleural Trivial pericardial effusion. MMode/2D Measurements & Calculations LVIDd: 5.0 cm IVSd: 1.0 cm Ao root diam: 2.8 cm LVIDs: 3.3 cm LVPWd: 1.1 cm RVDd: 2.6 cm FS: 35.0 % LAV(MOD-sp2): 35.9 ml LVAd ap4: 19.8 cm2 SV(MOD-sp4): 30.9 ml LVLd ap4: 6.2 cm EDV(MOD-sp4): 50.8 ml EDV(sp4-el): 53.9 ml LVAs ap4: 11.8 cm2 LVLs ap4: 5.9 cm ESV(MOD-sp4): 19.9 ml ESV(sp4-el): 19.8 ml EF(MOD-sp4): 60.8 % EF(sp4-el): 63.2 % SV(sp4-el): 34.0 ml Time Measurements MV dec time: 0.23 sec Doppler Measurements & Calculations MV E max dung: 105.1 cm/sec Lat Peak E' Dung: 6.0 cm/sec Med Peak E' Dung: 7.2 cm/sec MV A max dung: 120.9 cm/sec E/E' lat: 17.7 E/E' med: 14.6 MV E/A: 0.87 MV V2 max: 139.8 cm/sec MV P1/2t max dung: 113.2 cm/sec Ao V2 max: 142.2 cm/sec MV max P.8 mmHg MV P1/2t: 77.5 msec Ao max P.1 mmHg MV V2 mean: 65.7 cm/sec MV dec slope: 428.0 cm/sec2 Ao V2 mean: 91.9 cm/sec MV mean P.2 mmHg Ao mean P.0 mmHg MV V2 VTI: 43.8 cm MVA(P1/2t): 2.8 cm2 Ao V2 VTI: 33.7 cm AV (velocity ratio): 0.88 LV V1 max: 119.2 cm/sec PA V2 max: 102.5 cm/sec LV V1 max P.7 mmHg PA V2 mean: 71.4 cm/sec LV V1 mean P.1 mmHg LV V1 mean: 82.7 cm/sec LV V1 VTI: 29.7 cm ECHO/Echo Complete Interpretation Summary The left ventricular ejection fraction is 65 %. Diastolic function is indeterminate. Severe mitral annular calcification. Mild (1+) mitral valve insufficiency. Aortic sclerosis, no stenosis. There is mild biatrial dilatation. Ordering Physician: Pamella Liz Referring Physician: Maritza Grubbs Performed By: Angie Becerril, RDJUMA, RVT
[2023-08-08] MEDS: Levothyroxine 125 MCG Tablet PO (06:46)
--- NOTE | 2023-08-08 07:38 | PCM.CONS.C ---
Assessment & Plan Assessment/Plan (1) Non-ST elevated myocardial infarction: PLAN: The patient's enzymes are positive at 978 on the second troponin. She is currently free of any of the chest pressure sensation that she had when she first presented. Her EKG did not show any ischemic changes however she does have a 25% risks profile from a JAIME score. The patient is tolerating the IV heparin she has not been on nitrates. She continues to complain of the headache but it is markedly improved. The CT of her head was negative for any acute changes. Given the patient's risk factor profile I recommend with these positive enzymes that she undergo a left heart catheterization. The procedure risk/benefit and alternatives were explained to the patient and her daughter in detail they voiced understanding and agreed to proceed with Dr. Hahn performing the cath. 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 Will continue her current medical regimen. She does have a history of neuropathy. (3) High cholesterol: PLAN: Lipids are adequately controlled. She is on atorvastatin. (4) Hypertension: QUALIFIERS: Hypertension type: primary hypertension Qualified Code(s): I10 - Essential (primary) hypertension PLAN: Blood pressure is also well-controlled. PLAN: Plan Left heart catheterization via the right radial approach. Further recommendation be forthcoming once the results of the catheterization are available. HPI Consult Data Date of Consult: 08/08/23 HPI Narrative Reason for Consultation: Cheat pain and positive troponins HPI Narrative: PIPPA MURPHY, is a 83 F who presents history of new onset of chest pressure sensation. This started approximately 48 hours prior to admission with the photosensitivity to light and seeing prisms in front of her right eye. She developed a headache following this. And the headache persisted. Yesterday prior to admission with a headache still ongoing she developed this chest pressure sensation and came to the emergency department. The EKG in the ER did not show any significant ST or T wave changes consistent with ischemia. But her troponins were positive initial set 697 seconds at 978. The patient's chest symptoms resolved she still complains of a dull headache. A CT of the head was performed in the emergency department which showed no acute changes there was some loss of volume and white matter. The patient historically has been very active she was swimming 13 days a month by her report up until recently when her started to lose his vision and she had to stay around the house with him. The patient does have a history of diabetes mellitus hypertension and hyperlipidemia all of which are treated. The EKG showed normal sinus rhythm with a first-degree AV block and left axis deviation was otherwise unremarkable. The patient denies any PND orthopnea denies any lower extremity edema. She denies any claudication. The patient's daughter was in the room with her as I evaluated and discussed options with the patient. [facility] Medical History (Updated 08/08/23 @ 07:[address] Franco Cruz MD) Allergic rhinitis Arthritis Chronic lumbar pain Chronic neuropathic pain Diabetes mellitus type II, controlled DVT (deep venous thrombosis) GERD (gastroesophageal reflux disease) Sravani filter in place High cholesterol Hypertension Hypothyroidism Non-smoker Urinary incontinence Home Medications amlodipine 10 mg tablet 10 mg PO DAILY 04/03/20 [History Last Taken 03/08/21 04:00] aspirin 325 mg tablet,delayed release 325 mg PO DAILY@0800 04/03/20 [History Last Taken Unknown] atorvastatin 40 mg tablet 40 mg PO QHS 04/03/20 [History Last Taken Unknown] fluticasone propionate 50 mcg/actuation nasal spray,suspension 1 spray NASAL DAILY PRN Allergies 04/03/20 [History Last Taken Unknown] gabapentin 100 mg capsule 100 mg PO Q4H PRN PRN pain 04/03/20 [History Last Taken 03/08/21 04:00] hydrochlorothiazide 25 mg tablet 25 mg PO DAILY 04/03/20 [History Last Taken Unknown] levothyroxine 125 mcg tablet 125 mcg PO DAILY 04/03/20 [History Last Taken 03/08/21 04:00] metformin 500 mg tablet 1,000 mg PO BID 04/03/20 [History Last Taken Unknown] fqtaltwo-zru-vgjsp acid 0.4 mg-lycopene 300 mcg-lutein 250 mcg tablet 1 ea PO DAILY 04/03/20 [History Last Taken Unknown] quinapril 20 mg tablet 40 mg PO DAILY 04/03/20 [History Last Taken 03/08/21 04:00] cholecalciferol (vitamin D3) 25 mcg (1,000 unit) tablet (Vitamin D3) 5,000 unit PO DAILY 03/02/21 [History Last Taken Unknown] meloxicam 7.5 mg tablet 7.5 mg PO 03/20/23 [History Last Taken Unknown] hydrocodone-acetaminophen 5-325mg 5mg-325mg 1 tab PO Q6H PRN PRN Pain 3 days #12 TABLETS 03/21/23 [Rx Last Taken Unknown] lisinopril 40 mg tablet 40 mg PO DAILY 08/07/23 [History Last Taken Unknown] omeprazole magnesium 20 mg tablet,delayed release (Prilosec OTC) 20 mg PO DAILY 08/07/23 [History Last Taken Unknown] Allergy/AdvReac Type Severity Reaction Status Date / Time lidocaine Allergy Mild pain Verified 08/07/23 19:38 nabumetone Allergy PT UNSURE Verified 08/07/23 19:38 OF REACTION propoxyphene Allergy PT UNSURE Verified 08/07/23 19:38 [From Darvocet-N] OF REACTION rosiglitazone [From Avandia] Allergy PT UNSURE Verified 08/07/23 19:33 OF REACTION saxagliptin [From Onglyza] Allergy PT UNSURE Verified 08/07/23 19:33 OF REACTION simvastatin [From Zocor] Allergy PT UNSURE Verified 08/07/23 19:38 OF REACTION terbinafine [From Lamisil] Allergy PT UNSURE Verified 08/07/23 19:33 OF REACTION tramadol Allergy PT UNSURE Verified 08/07/23 19:33 OF REACTION warfarin [From Coumadin] Allergy PT UNSURE Verified 08/07/23 19:33 OF REACTION celecoxib [From Celebrex] AdvReac DIZZINESS Verified 08/07/23 19:33 prednisone AdvReac HEAD GETS Verified 08/07/23 19:33 FUZZY Family History Father CVA (cerebral vascular accident) Hypertension Mother Heart disease Hypertension Surgical History History of axillary surgery History of hip surgery History of [place] fundoplication Hx laparoscopic cholecystectomy Hx of colonoscopy Hx of left cataract extraction Hx of right cataract extraction Social History household members: spouse Smoking Status: Never smoker alcohol intake: never substance use type: does not use ROS Constitutional Constitutional: Reports as per HPI Eyes Eyes: Reports as per HPI ENT HEENT: Reports systems reviewed and no addt'l complaints, except as documented Cardiovascular Cardiovascular: Reports as per HPI Respiratory/Chest Respiratory/Chest: Reports as per HPI Gastrointestinal Gastrointestinal: Reports systems reviewed and no addt'l complaints, except as documented Genitourinary Genitourinary: Reports systems reviewed and no addt'l complaints, except as documented Musculoskeletal Musculoskeletal: Reports systems reviewed and no addt'l complaints, except as documented Integumentary Integumentary: Reports systems reviewed and no addt'l complaints, except as documented Neurologic Neurologic: Reports as per HPI Psychiatric Psychiatric: Reports systems reviewed and no addt'l complaints, except as documented Endocrine Endocrinology: Reports as per HPI Hematologic/Lymphatic Hematologic/Lymphatic: Reports systems reviewed and no addt'l complaints, except as documented Allergic/Immunologic Allergic/Immunologic: Reports systems reviewed and no addt'l complaints, except as documented Physical Exam Const oriented x3 HEENT normocephalic Eyes EOMs intact bilaterally Neck no JVD and no carotid bruits Chest inspection of chest normal Resp normal respiratory effort and clear to auscultation bilaterally Cardio regular rate, regular rhythm, S1 normal heart sound, S2 normal heart sound, no murmurs, no rub and no gallops Peripheral Pulses: pulses 2+ throughout GI normal to inspection, nondistended, normoactive bowel sounds Extremity no pedal edema Skin no rashes or lesions noted Neuro Neuro Narrative: Alert and oriented x 3. Psych mental status grossly normal Risk Stratification Risk Stratification Applicable: Yes Age >/= 65: Yes >/= 3 CAD Risk Factors (HTN, HLD, DM, family hx of CAD, or current smoker): Yes Aspirin Use in the Past 7 Days: Yes Severe Angina (>/= episodes in 24 hours): Yes EKG ST Changes >/= 0.5mm: No Positive Cardiac Marker: Yes JAIME Risk Stratification Score: 5 JAIME % Risk: 25% Risk Charges/Coding Visit Charges Inpatient E&M: 24495 Init Hosp L2 Objective Data Vital Signs: Vital Signs Temp Pulse Resp BP Pulse Ox O2 Del Method 98.2 F 67 16 136/61 H 95 Room Air 08/08/23 04:40 08/08/23 04:40 08/08/23 04:40 08/08/23 04:40 08/08/23 04:40 08/08/23 05:06 Oxygen Delivery Method Room Air Weight: 166 lb 0.129 oz Body Mass Index (BMI) 30.3 Intake & Output: Intake and Output for Last 24 Hours 08/06/23 08/07/23 08/08/23 23:59 23:59 23:59 Intake Total 220 / 220 189.83 / 189.83 Output Total 300 / 300 400 / 400 Balance -80 / -80 -210.17 / -210.17 Lab / Micro Data Attestation: I reviewed the patient's lab results. 08/08/23 03:27 08/08/23 03:27 Labs: Laboratory Results - last 24 hr 08/07/23 20:35: WBC 12.5 H, RBC 4.29, Hgb 12.7, Hct 38.1, MCV 88.8, MCH 29.6, MCHC 33.3, RDW Std Deviation 43.0, RDW Coeff of Blanceh 13.2, Plt Count 296, MPV 9.5, Immature Gran % (Auto) 0.400, Neut % (Auto) 83.0 H, Lymph % (Auto) 10.6 L, [place] % (Auto) 5.4, Eos % (Auto) 0.2, Baso % (Auto) 0.4, Absolute Neuts (auto) 10.4 H, Absolute Lymphs (auto) 1.32, Nucleated RBC % 0, Sodium 134 L, Potassium 4.0, Chloride 102, Carbon Dioxide 26.0, Anion Gap 6, BUN 16, Creatinine 0.91, Estim Creat Clear Calc 47.30, Est GFR (MDRD) Af Amer 76, Est GFR (MDRD) Non-Af 63, BUN/Creatinine Ratio 17.6, Glucose 189 H, Calcium 9.5, Magnesium 1.3 L, Troponin I High Sens 464 H* 08/07/23 23:40: Troponin I High Sens 697 H* 08/07/23 23:58: POC Glucose 169 H 08/08/23 00:58: APTT 73.0 H 08/08/23 03:27: WBC 9.9, RBC 3.96 L, Hgb 11.6 L, Hct 34.7 L, MCV 87.6, MCH 29.3, MCHC 33.4, RDW Std Deviation 42.5, RDW Coeff of Blanche 13.2, Plt Count 284, MPV 9.7, Immature Gran % (Auto) 0.200, Neut % (Auto) 62.3, Lymph % (Auto) 28.4, [place] % (Auto) 8.0, Eos % (Auto) 0.7, Baso % (Auto) 0.4, Absolute Neuts (auto) 6.2, Absolute Lymphs (auto) 2.82, Nucleated RBC % 0, Sodium 140, Potassium 3.6, Chloride 106, Carbon Dioxide 26.0, Anion Gap 8, BUN 12, Creatinine 0.75, Estim Creat Clear Calc 50.62, Est GFR (MDRD) Af Amer 95, Est GFR (MDRD) Non-Af 79, BUN/Creatinine Ratio 16.0, Glucose 145 H, Calcium 9.4, Magnesium 2.2, Total Bilirubin 0.80, AST 18, ALT 17, Alkaline Phosphatase 49, Troponin I High Sens 978 H*, Total Protein 6.9, Albumin 3.3, Globulin 3.6, Albumin/Globulin Ratio 0.9, Triglycerides 103, Cholesterol 126, LDL Cholesterol 49, VLDL Cholesterol 21, HDL Cholesterol 56 Rhythm Strip Rhythm Strip: Sinus Rhythm Rate: 80 Ectopy: None Cardiology Labs/Tests 08/07/23 20:35: WBC 12.5 H, RBC 4.29, Hgb 12.7, Hct 38.1, MCV 88.8, MCH 29.6, MCHC 33.3, Plt Count 296, MPV 9.5, Immature Gran % (Auto) 0.400, Neut % (Auto) 83.0 H, Lymph % (Auto) 10.6 L, [place] % (Auto) 5.4, Eos % (Auto) 0.2, Baso % (Auto) 0.4, Absolute Neuts (auto) 10.4 H, Nucleated RBC % 0, Sodium 134 L, Potassium 4.0, Chloride 102, Carbon Dioxide 26.0, Anion Gap 6, BUN 16, Creatinine 0.91, Est GFR (MDRD) Af Amer 76, Est GFR (MDRD) Non-Af 63, BUN/Creatinine Ratio 17.6, Glucose 189 H, Calcium 9.5, Magnesium 1.3 L 08/08/23 00:58: APTT 73.0 H 08/08/23 03:27: WBC 9.9, RBC 3.96 L, Hgb 11.6 L, Hct 34.7 L, MCV 87.6, MCH 29.3, MCHC 33.4, Plt Count 284, MPV 9.7, Immature Gran % (Auto) 0.200, Neut % (Auto) 62.3, Lymph % (Auto) 28.4, [place] % (Auto) 8.0, Eos % (Auto) 0.7, Baso % (Auto) 0.4, Absolute Neuts (auto) 6.2, Nucleated RBC % 0, Sodium 140, Potassium 3.6, Chloride 106, Carbon Dioxide 26.0, Anion Gap 8, BUN 12, Creatinine 0.75, Est GFR (MDRD) Af Amer 95, Est GFR (MDRD) Non-Af 79, BUN/Creatinine Ratio 16.0, Glucose 145 H, Calcium 9.4, Magnesium 2.2, Total Bilirubin 0.80, Triglycerides 103, Cholesterol 126, LDL Cholesterol 49, VLDL Cholesterol 21, HDL Cholesterol 56 Rhythm: EKG: ECHO: Stress Test: Cardiac Cath: PCI: CT Surgery: Holter monitor: EPS: PPM: CXR: Chest CT Scan: Radiography Diagnostic Testing: Radiology Impression Brain CT 08/07/23 20:05 IMPRESSION: Volume loss with chronic white matter changes. No acute intracranial findings. Electronically Signed: Jaime Parham MD at 21:01 EST Reading Location ID and State: Counts include 234 beds at the [facility] / [place] Tel , Service support , Chest X-Ray 08/07/23 20:08 IMPRESSION: No radiographic evidence of acute cardiopulmonary disease. Possible 13 mm pulmonary nodule right lower lung field. Recommend follow-up chest CT for further evaluation and to exclude parenchymal nodule, possible neoplasia. Electronically Signed: Jaime Parham MD at 21:07 EST ,
[2023-08-08] MEDS: Acetaminophen 325 MG Tablet 650 MG PO (08:04)
[2023-08-08] MEDS: Aspirin 81 MG TAB.CHEW PO (08:04)
[2023-08-08] MEDS: amLODIPine 10 MG Tablet PO (08:04)
[2023-08-08] MEDS: Metoprolol Tartrate 25 MG Tablet 12.5 MG PO ×2 (08:05→22:55)
[2023-08-08] MEDS: Lisinopril 40 MG Tablet PO (08:05)
[2023-08-08 08:51] LABS: Bedside Glucose 127 mg/dL (74-106)
--- NOTE | 2023-08-08 10:12 | CASEMGMT ---
Insurance review for hospitals In-network with [facility] insurance if transfer is recommended is as follows:?[facility], [place], [facility], [facility], [facility], [facility], [facility] ([facility]), [facility], [facility], [place], and . Vicky Zayas, Discharge Planning Asst.
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
[2023-08-08 11:00] LABS: Hemoglobin A1c 6.5 % (3.8-5.6)
[2023-08-08 11:33] LABS: Bedside Glucose 150 mg/dL (74-106)
--- NOTE | 2023-08-08 13:19 | NURSING ---
Report called to KANCHAN Beltran in catheter finisher and inspector. heparin gtt stopped
--- NOTE | 2023-08-08 13:21 | PCM.PN.HOSP ---
Reason for Visit Reason for Visit: Diagnoses Type 2 diabetes mellitus with diabetic neuropathy, unspecified (08/07/23) Pure hypercholesterolemia, unspecified (08/07/23) Essential (primary) hypertension (08/07/23) Non-ST elevation (NSTEMI) myocardial infarction (08/07/23) Subjective Subjective Patient admitted yesterday evening for NSTEMI after she presented with new onset substernal chest discomfort. No acute events overnight. Patient seen at bedside this morning, multiple family members present. Patient was laying comfortably in bed, in no acute distress. Patient was fatigued appearing and was answering questions appropriately but with short, somewhat soft responses. She reported mild to moderate ongoing chest discomfort at this time, improved from yesterday. She otherwise denied any other acute pain or discomfort. She and family had no other acute concerns at this time. Objective Data Objective Data Vital Signs: Vital Signs Temp Pulse Resp BP Pulse Ox O2 Del Method 98.5 F 75 16 133/61 H 93 Room Air 08/08/23 07:57 08/08/23 08:05 08/08/23 07:57 08/08/23 07:57 08/08/23 07:57 08/08/23 08:26 Oxygen Delivery Method Room Air Weight: 75.3 kg Body Mass Index (BMI) 30.3 Intake & Output: Intake and Output for Last 24 Hours 08/06/23 08/07/23 08/08/23 23:59 23:59 23:59 Intake Total 220 / 220 1263.63 / 1263.63 Output Total 300 / 300 400 / 400 Balance -80 / -80 863.63 / 863.63 Lab / Micro Data 08/08/23 03:27 08/08/23 03:27 Labs: Laboratory Results - last 24 hr 08/07/23 20:35: WBC 12.5 H, RBC 4.29, Hgb 12.7, Hct 38.1, MCV 88.8, MCH 29.6, MCHC 33.3, RDW Std Deviation 43.0, RDW Coeff of Blanche 13.2, Plt Count 296, MPV 9.5, Immature Gran % (Auto) 0.400, Neut % (Auto) 83.0 H, Lymph % (Auto) 10.6 L, [place] % (Auto) 5.4, Eos % (Auto) 0.2, Baso % (Auto) 0.4, Absolute Neuts (auto) 10.4 H, Absolute Lymphs (auto) 1.32, Nucleated RBC % 0, Sodium 134 L, Potassium 4.0, Chloride 102, Carbon Dioxide 26.0, Anion Gap 6, BUN 16, Creatinine 0.91, Estim Creat Clear Calc 47.30, Est GFR (MDRD) Af Amer 76, Est GFR (MDRD) Non-Af 63, BUN/Creatinine Ratio 17.6, Glucose 189 H, Calcium 9.5, Magnesium 1.3 L, Troponin I High Sens 464 H* 08/07/23 23:40: Troponin I High Sens 697 H* 08/07/23 23:58: POC Glucose 169 H 08/08/23 00:58: APTT 73.0 H 08/08/23 03:27: WBC 9.9, RBC 3.96 L, Hgb 11.6 L, Hct 34.7 L, MCV 87.6, MCH 29.3, MCHC 33.4, RDW Std Deviation 42.5, RDW Coeff of Blanche 13.2, Plt Count 284, MPV 9.7, Immature Gran % (Auto) 0.200, Neut % (Auto) 62.3, Lymph % (Auto) 28.4, [place] % (Auto) 8.0, Eos % (Auto) 0.7, Baso % (Auto) 0.4, Absolute Neuts (auto) 6.2, Absolute Lymphs (auto) 2.82, Nucleated RBC % 0, Sodium 140, Potassium 3.6, Chloride 106, Carbon Dioxide 26.0, Anion Gap 8, BUN 12, Creatinine 0.75, Estim Creat Clear Calc 50.62, Est GFR (MDRD) Af Amer 95, Est GFR (MDRD) Non-Af 79, BUN/Creatinine Ratio 16.0, Glucose 145 H, Hemoglobin A1c 6.5 H, Calcium 9.4, Magnesium 2.2, Total Bilirubin 0.80, AST 18, ALT 17, Alkaline Phosphatase 49, Troponin I High Sens 978 H*, Total Protein 6.9, Albumin 3.3, Globulin 3.6, Albumin/Globulin Ratio 0.9, Triglycerides 103, Cholesterol 126, LDL Cholesterol 49, VLDL Cholesterol 21, HDL Cholesterol 56 08/08/23 06:48: POC Glucose 127 H 08/08/23 07:55: APTT 60.0 H 08/08/23 11:15: POC Glucose 150 H Radiography Diagnostic Testing: Radiology Impression Brain CT 08/07/23 20:05 IMPRESSION: Volume loss with chronic white matter changes. No acute intracranial findings. Electronically Signed: Jaime Parham MD at 21:01 EST , Chest X-Ray 08/07/23 20:08 IMPRESSION: No radiographic evidence of acute cardiopulmonary disease. Possible 13 mm pulmonary nodule right lower lung field. Recommend follow-up chest CT for further evaluation and to exclude parenchymal nodule, possible neoplasia. Electronically Signed: Jaime Parham MD at 21:07 EST , Rhythm Strip Rhythm Strip: Sinus Rhythm Rate: 80 Ectopy: None Physical Exam Const alert and no apparent distress Constitutional Narrative: Elderly female, obese, laying comfortably bed, fatigued appearing, answering questions appropriately but with short, soft responses, in no acute distress. General Appearance: cooperative and comfortable HEENT normocephalic, head/scalp atraumatic, hearing grossly normal bilaterally and nasal mucous membranes and turbinates normal Eyes PERRL, EOMs intact bilaterally and conjunctivae normal Neck full ROM Chest inspection of chest normal Resp normal respiratory effort, normal air movement, no use of accessory muscles and clear to auscultation bilaterally Cardio regular rate, regular rhythm, no murmurs and peripheral pulses 2+ throughout GI normal to inspection, nondistended, normoactive bowel sounds, soft to palpation, non-tender and non-distended Back/Spine normal ROM Extremity normal to inspection, full ROM and no pedal edema Skin no rashes or lesions noted Neuro no focal motor deficits and no sensory deficits noted Psych mental status grossly normal Assessment & Plan Assessment/Plan (1) Non-ST elevated myocardial infarction: PLAN: Plan Patient is an 83-year-old female who presented to [facility] ED on 08/07/2023 with chest pain. 1. NSTEMI ? Presented with substernal chest discomfort at rest. ? Troponin trend on admit of 464 > 697 > 978. EKG showed sinus rhythm, no ischemic changes. ? TTE 08/07 showed EF 65%, diastolic function indeterminate, mild biatrial dilation, severe mitral annular calcification but otherwise no significant valve disease. ? Cardiology following. S/p left heart cath on 08/07 that showed moderate disease in LAD with moderate to severe mitral calcification. No stents placed, recommendation was for medical therapy. ? Continue baby aspirin, lisinopril, hydrochlorothiazide, amlodipine, Lopressor and high intensity atorvastatin. Appreciate further recommendations from cardiology. 2. Type 2 diabetes mellitus with mild hyperglycemia ? Home regimen of metformin 1000 mg twice daily. Blood glucose 189 on admit. A1c 6.5%. Continue sliding scale insulin with meals while inpatient. Chronic medical conditions: ? Obesity: BMI 30 on admit. Complicates hospital course, care and prognosis. ? Hypertension: Continue home amlodipine, hydrochlorothiazide, Lopressor and lisinopril. ? Hyperlipidemia: Lipid panel on admit showed total cholesterol 126, LDL 49, HDL 56. Continue home atorvastatin 40 mg daily. ? Hypothyroidism: Continue home Synthroid. ? GERD: Continue home PPI. ? Allergic rhinitis: Continue home fluticasone. DVT prophylaxis: Heparin drip CODE STATUS: DNR CCA, DNI. Patient was initially full code on admission, however after further discussion with patient at bedside on morning of 08/07 she was fairly adamant that she wanted her CODE STATUS to be DNR CCA, DNI. The family that was present was in agreement with this. Expected disposition: Home, 1 to 2 days Total clinical time spent by myself addressing the patient's medical issues, reviewing all the data, and collaborating with patient's care team: 35 minutes. Charges/Coding Visit Charges Inpatient E&M: 14817 Subs Hosp L2
--- NOTE | 2023-08-08 15:26 | CL.D_ITS ---
Patient Name: PIPPA MURPHY Study Date: 08/08/2023 Performing: Elton Hahn MD Ht: 62 inches 157.48 cm : 1940 Wt: 166.01 lbs 75.3 kg Age: 83 Gender: female BSA: 1.77 PROCEDURE(S) PERFORMED DC01-(30694)LHC/COR/LV CLINICAL PROFILE AND INDICATIONS Indications: Suspected CAD Heart Failure: None Stress/Imaging Stress/Image Study Performed: No CAD Presentations: Stable angina. CONCLUSIONS Moderate disease noted in the left anterior descending artery with moderate to severe mitral calcification. RECOMMENDATIONS Medical therapy DESCRIPTION OF PROCEDURE The patient arrived to the procedure lab. The risks and benefits of the procedure as well as a full description of our services here and current unavailability of surgical backup were fully explained to the patient and/or their significant other prior to the catheterization. The Timeout was completed, verifying the correct patient and procedure. The patient's procedural site was prepped and draped in the usual fashion. Local anesthetic was given subcutaneously to right radial region with Lidocaine 2%. Using a modified Seldinger technique, arterial access was obtained via the right radial artery, a 6Fr sheath was inserted. Right Coronary Artery selective angiography was then performed in multiple views using a 5 Fr. 4.0 [place] catheter. Left Coronary Artery selective angiography was performed in multiple views using a 5 Fr. 4.0 [place] catheter. Left Ventriculography was performed in NOGUEIRA projection using a 5 Fr. [place] catheter. LV to AO pullback pressures were then recorded.The arterial sheath was pulled and a TR Band was applied for hemostasis CORONARY ANGIOGRAPHY DOMINANCE: Right Dominant LEFT HEART ASSESSMENT Normal LV wall motion LEFT MAIN: Mild calcification, Mild luminal irregularities LEFT ANTERIOR DESCENDING ARTERY: Moderate calcification, Medium size left anterior descending artery with moderate calcification and moderate 50 to 60% stenosis. Mild distal disease noted. CIRCUMFLEX ARTERY: Mild luminal irregularities less than 30% RIGHT CORONARY ARTERY: Mild luminal irregularities VALVE FINDINGS: Mitral Valve Calcification Severe COMPLICATIONS No Complications PROCEDURE MEDICATIONS Fentanyl 50 mcg IV Versed 1 mg IV Versed 1 mg IV Fentanyl 25 mcg IV Versed 1 mg IV Oxygen: 2 L/min via nasal cannula Heparin given IA 08/08/2023 15:04:03 Verapamil 2.5mg, Ntg 100mcgs, 3000 units of Heparin given IA 08/08/2023 15:04:03 SUMMARY OF HEMODYNAMIC DATA Time AIR REST ECG 13:34:00 AO 110/52 (76) SA 15:11:38 LV 114/9, 20 15:19:08 LV 111/14, 23 15:19:30 LVp 111/10, 21 15:19:49 AOp 110/45 (69) 15:19:56 Signed By Elton Hahn MD On 08/08/2023 15:25:33 Elton Hahn MD
[2023-08-08 16:57] LABS: Bedside Glucose 124 mg/dL (74-106)
[2023-08-08] MEDS: Pantoprazole Sodium 20 MG Tablet PO (17:52)
[2023-08-08] MEDS: Atorvastatin Calcium 40 MG Tablet PO (22:55)
[2023-08-09 01:07] LABS: Bedside Glucose 104 mg/dL (74-106)
[2023-08-09 04:25] VITALS: BP 113/65; PULSE 80; RESP 18; TEMP 36.3; O2SAT 96
[2023-08-09] MEDS: Levothyroxine 125 MCG Tablet PO (05:14)
[2023-08-09 06:00] VITALS: BMI 30.2
[2023-08-09 06:43] LABS: Bedside Glucose 114 mg/dL (74-106)
[2023-08-09 08:26] VITALS: BP 121/56; PULSE 68
[2023-08-09] MEDS: hydroCHLOROthiazide 25 MG Tablet PO (08:26)
[2023-08-09] MEDS: Metoprolol Tartrate 25 MG Tablet 12.5 MG PO (08:26)
[2023-08-09] MEDS: Aspirin 81 MG TAB.CHEW PO (08:26)
[2023-08-09] MEDS: amLODIPine 10 MG Tablet PO (08:27)
[2023-08-09 08:33] LABS: Hematocrit 37.7 % (37-47); Hemoglobin 12.6 g/dL (12.0-15.0); Mean Corp Hgb Conc 33.4 g/dL (32-36); Mean Corpuscular Hgb 30.4 pg (27.0-32.0); Mean Corpuscular Volume 91.1 fL (81-99); Mean Platelet Vol. 9.6 fl (6.2-12.0); Platelet Count 294 K/mm3 (150-450); RBC Distribution Width CV 13.4 % (11.6-14.6); RBC Distribution Width SD 45.2 fl (35.1-43.9); Red Blood Count 4.14 M/mm3 (4.2-5.4); White Blood Count 8.7 K/mm3 (4.4-11.0)
[2023-08-09 08:56] LABS: Anion Gap 9 (5-15); BUN 14 mg/dL (7-18); BUN/Creat Ratio 15.2 RATIO (10-20); Calcium,Total 9.6 mg/dL (8.5-10.1); Chloride 105 mmol/L (98-107); Creatinine, Serum 0.92 mg/dL (0.55-1.02); EST Glomerular Filtration Rate 62 mL/min (>60); Est Glom Filt Rate - Afr Amer 75 mL/min (>60); Glucose 131 mg/dL (74-106); Potassium 4.3 mmol/L (3.5-5.1); Sodium Level 140 mmol/L (136-145)
[2023-08-09 09:41] VITALS: BP 117/75; PULSE 74; RESP 16; TEMP 36.2; O2SAT 97
[2023-08-09] MEDS: Pantoprazole Sodium 20 MG Tablet PO (09:42)
[2023-08-09] MEDS: Lisinopril 40 MG Tablet PO (09:42)
--- NOTE | 2023-08-09 10:19 | PCM.PN.CARD ---
Subjective Subjective The patient is eating breakfast sitting up on the side of the bed in no apparent distress. She denies any anginal type symptoms she reports that she is felt well and she tolerated the heart catheterization without incident. The cath revealed an LAD of 50 to 60% in the midsegment. The circumflex and right coronary had minimal disease. Echocardiogram showed an LV ejection fraction of 65% with normal wall motion. Objective Data Vital Signs: Vital Signs Temp Pulse Resp BP Pulse Ox O2 Del Method 97.2 F L 74 16 117/75 97 Room Air 08/09/23 09:41 08/09/23 09:41 08/09/23 09:41 08/09/23 09:41 08/09/23 09:41 08/09/23 09:41 Oxygen Delivery Method Room Air Weight: 165 lb 2.02 oz Body Mass Index (BMI) 30.2 Intake & Output: Intake and Output for Last 24 Hours 08/07/23 08/08/23 08/09/23 23:59 23:59 23:59 Intake Total 220 / 220 1753.63 / 2003.63 450 / 450 Output Total 300 / 300 400 / 400 Balance -80 / -80 1353.63 / 1603.63 450 / 450 Lab / Micro Data Attestation: I reviewed the patient's lab results. 08/09/23 08:06 08/09/23 08:06 Labs: Laboratory Results - last 24 hr 08/08/23 03:27: Hemoglobin A1c 6.5 H 08/08/23 11:15: POC Glucose 150 H 08/08/23 16:32: POC Glucose 124 H 08/08/23 22:53: POC Glucose 104 08/09/23 06:20: POC Glucose 114 H 08/09/23 08:06: WBC 8.7, RBC 4.14 L, Hgb 12.6, Hct 37.7, MCV 91.1, MCH 30.4, MCHC 33.4, RDW Std Deviation 45.2 H, RDW Coeff of Blanche 13.4, Plt Count 294, MPV 9.6, Sodium 140, Potassium 4.3, Chloride 105, Carbon Dioxide 26.0, Anion Gap 9, BUN 14, Creatinine 0.92, Estim Creat Clear Calc 43.90, Est GFR (MDRD) Af Amer 75, Est GFR (MDRD) Non-Af 62, BUN/Creatinine Ratio 15.2, Glucose 131 H, Calcium 9.6 Rhythm Strip Rhythm Strip: Sinus Rhythm Rate: 70 Ectopy: None Cardiology Labs/Tests 08/08/23 03:27: Hemoglobin A1c 6.5 H 08/09/23 08:06: WBC 8.7, RBC 4.14 L, Hgb 12.6, Hct 37.7, MCV 91.1, MCH 30.4, MCHC 33.4, Plt Count 294, MPV 9.6, Sodium 140, Potassium 4.3, Chloride 105, Carbon Dioxide 26.0, Anion Gap 9, BUN 14, Creatinine 0.92, Est GFR (MDRD) Af Amer 75, Est GFR (MDRD) Non-Af 62, BUN/Creatinine Ratio 15.2, Glucose 131 H, Calcium 9.6 Rhythm: EKG: ECHO: Stress Test: Cardiac Cath: PCI: CT Surgery: Holter monitor: EPS: PPM: CXR: Chest CT Scan: Radiography Diagnostic Testing: Radiology Impression Echocardiogram 08/08/23 05:55 Interpretation Summary The left ventricular ejection fraction is 65 %. Diastolic function is indeterminate. Severe mitral annular calcification. Mild (1+) mitral valve insufficiency. Aortic sclerosis, no stenosis. There is mild biatrial dilatation. Ordering Physician: Pamella Liz Referring Physician: Maritza Grubbs Performed By: Angie Becerril, RDCS, RVT Physical Exam Const oriented x3 HEENT normocephalic Eyes EOMs intact bilaterally Neck no JVD Chest inspection of chest normal Resp normal respiratory effort and clear to auscultation bilaterally Cardio regular rate, regular rhythm, S1 normal heart sound, S2 normal heart sound, no murmurs, no rub and no gallops Peripheral Pulses: radial pulses present GI soft to palpation Extremity no pedal edema Skin no rashes or lesions noted Neuro Neuro Narrative: Alert and oriented x 3 Psych mental status grossly normal Assessment & Plan Assessment/Plan (1) Elevated troponin: PLAN: The patient's troponin elevation of 697 and 978 appears to be demand ischemia. Her blood pressure is much better control and she had only moderate disease in the LAD with a 50 to 60% stenosis. Her LV function was normal ejection fraction of 65%. The patient is tolerating her current medical regiment with good blood pressure control. This does not represent a non-STEMI. (2) Hypertension: QUALIFIERS: Hypertension type: primary hypertension Qualified Code(s): I10 - Essential (primary) hypertension PLAN: The patient's blood pressure is much better controlled in the future if further medical adjustments are needed consideration may given adding hydrochlorothiazide or spironolactone to her current beta-zahira and ARB therapy. (3) Atherosclerotic cardiovascular disease: PLAN: The patient should be continued on aggressive intensive statin therapy consideration may given increasing her atorvastatin to 80 mg daily or alternatively switching her to rosuvastatin 40 mg daily. I will defer this to the primary service and long-term management by her primary care physician. PLAN: Plan 1. Continue current in-house hospital medical therapy for hypertension. 2. Consider increasing her statin therapy to more intensive levels either atorvastatin 80 or rosuvastatin 40 given her known coronary disease. 3. Patient should follow-up in the [facility] in 1 month to 6 weeks. Charges/Coding Visit Charges Inpatient E&M: 27447 Subs Hosp L2
[2023-08-09 11:59] LABS: Bedside Glucose 152 mg/dL (74-106)
--- NOTE | 2023-08-09 13:17 | PCM.DC ---
Discharge Instructions Diet Discharge Diet: No restrictions Activity Discharge Activity: No Restrictions Weight Bearing Status: Full weight bearing Follow Up Care Test Results: Test results from this visit will be discussed in further detail at your follow-up appointment, if applicable. Discharge Plan Admission Admit Date/Time: 08/07/23 21:57 Primary Reason for Your Visit: chest pain Attending Provider: Emmanuel Ware Primary Care Provider: Maritza Grubbs Consulting Providers: Franco Cruz; Pamella Liz Instructions Additional Instructions / Restrictions: Please start taking only a baby aspirin daily (not a full dose aspirin). Also start taking Lopressor 12.5 mg twice daily as noted below. Continue all other home medications as previously prescribed. Follow-up with the [facility] in 4 to 6 weeks. Discharge Orders/Prescriptions Prescriptions: New aspirin 81 mg Tablet,Chewable 81 mg PO BREAKFAST 30 Days Qty: 30 0RF metoprolol tartrate 25 mg Tablet 12.5 mg PO BID 30 Days Qty: 30 0RF Continued atorvastatin 40 MG tablet 40 mg PO QHS metformin 500 MG tablet 1,000 mg PO BID amlodipine 10 MG tablet 10 mg PO DAILY levothyroxine 125 MCG tablet 125 mcg PO DAILY quinapril 20 MG tablet 40 mg PO DAILY hydrochlorothiazide 25 MG tablet 25 mg PO DAILY gabapentin 100 MG capsule 100 mg PO Q4H PRN PRN (Reason: pain) fluticasone propionate 1 SPRAY spray,suspension 1 spray NASAL DAILY PRN (Reason: Allergies) [id number]-lutein 1 EACH tablet 1 ea PO DAILY cholecalciferol (vitamin D3) [Vitamin D3] 25 mcg (1,000 unit) Tablet 5,000 unit PO DAILY hydrocodone-acetaminophen 5-325 mg tablet 1 tab PO Q6H PRN PRN (Reason: Pain) 3 Days Qty: 12 0RF lisinopril 40 mg tablet 40 mg PO DAILY omeprazole magnesium [Prilosec OTC] 20 mg tablet,delayed release (DR/EC) 20 mg PO DAILY Discontinued aspirin 325 MG tablet 325 mg PO DAILY@0800 meloxicam 7.5 mg tablet 7.5 mg PO Referrals / Follow Up: Maritza Grubbs, [Primary Care Provider] - Alondra Caceres SPRINKLER REPAIR TECHNICIAN, SPRINKLER REPAIR TECHNICIAN-C [Non-Staff -Ordering Privileges] - 08/30/23 10:30 am Disposition Disposition (needs filled in before D/C Order can be placed): Home, Self Care
--- NOTE | 2023-08-09 13:20 | PCM.DC.SUM ---
Providers Date of Admission: 08/07/23 Date of Discharge: 08/09/23 Primary Care Physician: Dr. Maritza Grubbs DO Consultations 08/07/23 22:49 Consult: Cardiology Routine Consulting Provider: Franco Cruz Reason for Consult: Chest Pain, NSTEMI EMERGENT Consult: No MD Notified: Yes Date Notified: 08/07/23 Time Notified: 21:59 Method of Notification: Text Reason For Visit: NSTEMI Diagnosis Discharge Diagnosis (1) Elevated troponin: Status: Acute Code(s): R79.89 - Other specified abnormal findings of blood chemistry (2) Hypertension: Status: Chronic Code(s): I10 - Essential (primary) hypertension Qualifiers: Hypertension type: primary hypertension Qualified Code(s): I10 - Essential (primary) hypertension (3) Atherosclerotic cardiovascular disease: Status: Acute Code(s): I25.10 - Atherosclerotic heart disease of [place] coronary artery without angina pectoris Medications at Discharge Home Medications amlodipine 10 mg tablet 10 mg PO DAILY 04/03/20 atorvastatin 40 mg tablet 40 mg PO QHS 04/03/20 fluticasone propionate 50 mcg/actuation nasal spray,suspension 1 spray NASAL DAILY PRN Allergies 04/03/20 gabapentin 100 mg capsule 100 mg PO Q4H PRN PRN pain 04/03/20 hydrochlorothiazide 25 mg tablet 25 mg PO DAILY 04/03/20 levothyroxine 125 mcg tablet 125 mcg PO DAILY 04/03/20 metformin 500 mg tablet 1,000 mg PO BID 04/03/20 cmysjrpd-vol-iuiel acid 0.4 mg-lycopene 300 mcg-lutein 250 mcg tablet 1 ea PO DAILY 04/03/20 quinapril 20 mg tablet 40 mg PO DAILY 04/03/20 cholecalciferol (vitamin D3) 25 mcg (1,000 unit) tablet (Vitamin D3) 5,000 unit PO DAILY 03/02/21 hydrocodone-acetaminophen 5-325mg 5mg-325mg 1 tab PO Q6H PRN PRN Pain 3 days #12 TABLETS 03/21/23 lisinopril 40 mg tablet 40 mg PO DAILY 08/07/23 omeprazole magnesium 20 mg tablet,delayed release (Prilosec OTC) 20 mg PO DAILY 08/07/23 aspirin 81 mg chewable tablet 81 mg PO BREAKFAST 30 days #30 tabs 08/09/23 metoprolol tartrate 25 mg tablet 12.5 mg (1/2 x 25 mg) PO BID 30 days #30 tabs 08/09/23 Hospital Course Operations None Procedures Cardiac catheterization, EKG, Transthoracic echo and - (CT brain without contrast, chest x-ray) Summary of Care Provided Minutes Spent on Discharge: 35 Hospital Course: Patient is an 83-year-old female who presented to [facility] ED on 08/07/2023 with chest pain. Short hospital course as noted below. Discharged home with no therapy needs in stable condition on 08/08. 1. NSTEMI ? Presented with substernal chest discomfort at rest. ? Troponin trend on admit of 464 > 697 > 978. EKG showed sinus rhythm, no ischemic changes. ? TTE 08/07 showed EF 65%, diastolic function indeterminate, mild biatrial dilation, severe mitral annular calcification but otherwise no significant valve disease. ? S/p left heart cath on 08/07 that showed moderate disease in LAD with moderate to severe mitral calcification. No stents placed, recommendation was for medical therapy. ? Cardiology followed. Continue baby aspirin, lisinopril, hydrochlorothiazide, amlodipine, Lopressor and high intensity atorvastatin on discharge. Outpatient follow-up with cardiology in 4 to 6 weeks. 2. Type 2 diabetes mellitus with mild hyperglycemia ? Home regimen of metformin 1000 mg twice daily. Blood glucose 189 on admit. A1c 6.5%. On sliding-scale insulin with meals while inpatient, okay to resume home metformin on discharge. Chronic medical conditions: ? Obesity: BMI 30 on admit. Complicated hospital course, care and prognosis. ? Hypertension: Continue home amlodipine, hydrochlorothiazide, Lopressor and lisinopril. ? Hyperlipidemia: Lipid panel on admit showed total cholesterol 126, LDL 49, HDL 56. Continue home atorvastatin 40 mg daily. ? Hypothyroidism: Continue home Synthroid. ? GERD: Continue home PPI. ? Allergic rhinitis: Continue home fluticasone. Total clinical time spent by myself addressing the patient's medical issues, reviewing all the data, and collaborating with patient's care team: 35 minutes. Physical Exam Const alert and no apparent distress Constitutional Narrative: Elderly female, obese, sitting up comfortably in bed, conversing normally, in no acute distress. General Appearance: cooperative and comfortable HEENT normocephalic, head/scalp atraumatic, hearing grossly normal bilaterally and nasal mucous membranes and turbinates normal Eyes PERRL, EOMs intact bilaterally and conjunctivae normal Neck full ROM Chest inspection of chest normal Resp normal respiratory effort, normal air movement, no use of accessory muscles and clear to auscultation bilaterally Cardio regular rate, regular rhythm, no murmurs and peripheral pulses 2+ throughout GI normal to inspection, nondistended, normoactive bowel sounds, soft to palpation, non-tender and non-distended Back/Spine normal ROM Extremity normal to inspection, full ROM and no pedal edema Skin no rashes or lesions noted Neuro no focal motor deficits and no sensory deficits noted Psych mental status grossly normal Weight / BMI Weight Weight: 74.9 kg Body Mass Index (BMI) 30.2 ABG / Lab / Microbiology Data 08/09/23 08:06 08/09/23 08:06 Laboratory: Laboratory Results - last 24 hr 08/08/23 16:32: POC Glucose 124 H 08/08/23 22:53: POC Glucose 104 08/09/23 06:20: POC Glucose 114 H 08/09/23 08:06: WBC 8.7, RBC 4.14 L, Hgb 12.6, Hct 37.7, MCV 91.1, MCH 30.4, MCHC 33.4, RDW Std Deviation 45.2 H, RDW Coeff of Blanche 13.4, Plt Count 294, MPV 9.6, Sodium 140, Potassium 4.3, Chloride 105, Carbon Dioxide 26.0, Anion Gap 9, BUN 14, Creatinine 0.92, Estim Creat Clear Calc 43.90, Est GFR (MDRD) Af Amer 75, Est GFR (MDRD) Non-Af 62, BUN/Creatinine Ratio 15.2, Glucose 131 H, Calcium 9.6 08/09/23 11:39: POC Glucose 152 H Radiography Diagnostic Testing: Radiology Impression Echocardiogram 08/08/23 05:55 Interpretation Summary The left ventricular ejection fraction is 65 %. Diastolic function is indeterminate. Severe mitral annular calcification. Mild (1+) mitral valve insufficiency. Aortic sclerosis, no stenosis. There is mild biatrial dilatation. Ordering Physician: Pamella Liz Referring Physician: Maritza Grubbs Performed By: Angie Becerril RDCS, RVT D/C Instructions Discharge Diet: No restrictions Weight Bearing Status: Full weight bearing Meaningful Use Info Meaningful Use Diagnoses (Choose all that apply): None applicable Discharge Plan Admission Admit Date/Time: 08/07/23 21:57 Primary Reason for Your Visit: chest pain Attending Provider: Emmanuel Ware Primary Care Provider: Maritza Grubbs Consulting Providers: Franco Cruz; Pamella Liz Instructions Additional Instructions / Restrictions: Please start taking only a baby aspirin daily (not a full dose aspirin). Also start taking Lopressor 12.5 mg twice daily as noted below. Continue all other home medications as previously prescribed. Follow-up with the [facility] in 4 to 6 weeks. Discharge Orders/Prescriptions Prescriptions: New aspirin 81 mg Tablet,Chewable 81 mg PO BREAKFAST 30 Days Qty: 30 0RF metoprolol tartrate 25 mg Tablet 12.5 mg PO BID 30 Days Qty: 30 0RF Continued atorvastatin 40 MG tablet 40 mg PO QHS metformin 500 MG tablet 1,000 mg PO BID amlodipine 10 MG tablet 10 mg PO DAILY levothyroxine 125 MCG tablet 125 mcg PO DAILY quinapril 20 MG tablet 40 mg PO DAILY hydrochlorothiazide 25 MG tablet 25 mg PO DAILY gabapentin 100 MG capsule 100 mg PO Q4H PRN PRN (Reason: pain) fluticasone propionate 1 SPRAY spray,suspension 1 spray NASAL DAILY PRN (Reason: Allergies) qmxbexww-bfq-FY-lycopen-lutein 1 EACH tablet 1 ea PO DAILY cholecalciferol (vitamin D3) [Vitamin D3] 25 mcg (1,000 unit) Tablet 5,000 unit PO DAILY hydrocodone-acetaminophen 5-325 mg tablet 1 tab PO Q6H PRN PRN (Reason: Pain) 3 Days Qty: 12 0RF lisinopril 40 mg tablet 40 mg PO DAILY omeprazole magnesium [Prilosec OTC] 20 mg tablet,delayed release (DR/EC) 20 mg PO DAILY Discontinued aspirin 325 MG tablet 325 mg PO DAILY@0800 meloxicam 7.5 mg tablet 7.5 mg PO Referrals / Follow Up: Maritza Grubbs DO [Primary Care Provider] - 08/17/23 2:15 pm Alondra Caceres NP, [employer] [Non-Staff -Ordering Privileges] - 08/30/23 10:30 am Disposition Disposition (needs filled in before D/C Order can be placed): Home, Self Care Charges/Coding Visit Charges Inpatient E&M: 23040 Disch Hosp >30min
--- NOTE | 2023-08-09 14:44 | CASEMGMT ---
Patient has order for discharge. RN CM in to discuss needs at discharge. Patient and family deny needs or help at discharge. Patient inquired about transportation information and provided packet in patient folder. Patient and family had no further questions or concerns.
== END 2023-08-09 14:50 | disposition home or self-care (01) | DRG 282 ==
LOC: ED 21:45 → PCU 22:05
PROVIDERS: Admitting Provider Family Medicine; Emergency Provider Emergency Medicine; PCP Internal Medicine; Visit Provider Hospitalist
DX: I21.4 Non-ST elevation (NSTEMI) myocardial infarction (principal); E03.9 Hypothyroidism, unspecified; E11.40 Type 2 diabetes mellitus with diabetic neuropathy, unspecified; E11.65 Type 2 diabetes mellitus with hyperglycemia; Z79.4 Long term (current) use of insulin; I10 Essential (primary) hypertension; K21.9 Gastro-esophageal reflux disease without esophagitis; J30.9 Allergic rhinitis, unspecified; E78.5 Hyperlipidemia, unspecified; I25.2 Old myocardial infarction; I25.10 Atherosclerotic heart disease of native coronary artery without angina pectoris; I34.81 Nonrheumatic mitral (valve) annulus calcification; E66.9 Obesity, unspecified; Z79.84 Long term (current) use of oral hypoglycemic drugs; Z79.1 Long term (current) use of non-steroidal anti-inflammatories (NSAID); Z79.01 Long term (current) use of anticoagulants; Z79.82 Long term (current) use of aspirin; R91.1 Solitary pulmonary nodule; Z66 Do not resuscitate; Z82.3 Family history of stroke; I24.89 Other forms of acute ischemic heart disease; Z68.30 Body mass index [BMI] 30.0-30.9, adult
CPT/HCPCS: 36415; 70450; 71045; 80048; 80053; 80061; 82962; 83036; 83735; 84484; 85025; 85027; 85730; 93005; 93306; 93458; 99152; 99153; 99285; J7030; J7040; A4216; C1769; C1894; Q9967

== ENCOUNTER → 2023-08-30 | Outpatient (CLI) | payer MEDICARE, SELFPAY ==
[2023-08-30 11:46] LABS: Absolute Lymphocyte Count 1.98 X10^3/uL (0.83-4.51); Absolute Neutrophil Count 5.4 X10^3/uL (2.0-7.7); Basophil# 0.06 X10^3/uL; Basophil% 0.7 % (0-1); Eosinophil# 0.19 X10^3/uL; Eosinophils% 2.3 % (0-5); Hematocrit 37.9 % (37-47); Hemoglobin 12.2 g/dL (12.0-15.0); Lymphocyte # 1.98 X10^3/ul (0.83-4.51); Lymphocyte % 23.7 % (19-41); Mean Corp Hgb Conc 32.2 g/dL (32-36); Mean Corpuscular Hgb 29.8 pg (27.0-32.0); Mean Corpuscular Volume 92.4 fL (81-99); Monocyte# 0.69 X10^3/uL; Monocyte% 8.2 % (0-10); NRBC Flagged by Analyzer 0 % (0-5); Neutrophil # 5.43 X10^3/uL (2.7-7.7); Neutrophil % 64.9 % (47-70); Platelet Count 293 K/mm3 (150-450); RBC Distribution Width CV 13.3 % (11.6-14.6); RBC Distribution Width SD 45.1 fl (35.1-43.9); White Blood Count 8.4 K/mm3 (4.4-11.0)
[2023-08-30 12:08] LABS: Anion Gap 5 (5-15); BUN 21 mg/dL (7-18); BUN/Creat Ratio 24.3 RATIO (10-20); Calcium,Total 9.3 mg/dL (8.5-10.1); Chloride 106 mmol/L (98-107); Creatinine, Serum 0.86 mg/dL (0.55-1.02); EST Glomerular Filtration Rate 67 mL/min (>60); Est Glom Filt Rate - Afr Amer 81 mL/min (>60); Glucose 163 mg/dL (74-106); Magnesium 1.5 mg/dL (1.6-2.6); Potassium 4.4 mmol/L (3.5-5.1); Sodium Level 138 mmol/L (136-145)
== END | disposition home or self-care (01) ==
LOC: LAB 11:01
PROVIDERS: PCP Internal Medicine; Referring Provider Nurse Practitioner Gerontology; Visit Provider Nurse Practitioner Gerontology
DX: R42 Dizziness and giddiness (principal)
CPT/HCPCS: 36415; 80048; 83735; 85025

== ENCOUNTER → 2024-02-08 | Outpatient (CLI) | payer MEDICARE, SELFPAY ==
--- NOTE | 2024-02-08 12:32 | BI_ITS ---
MAMMOGRAPHY - BILATERAL SCREENING REASON FOR EXAM: Female, 83 years old. Routine annual screening examination. PERTINENT HISTORY: Aunt with breast cancer. History of prior left stereotactic breast biopsy. TECHNIQUE: Digital bilateral breast kaykay (3D mammographic acquisition) in the CC and MLO projections. 2-D mediolateral oblique (MLO) and craniocaudad (CC) views of both breasts were obtained. CAD: Full Field Digital Mammography with Computer Added Detection was performed. COMPARISON: Comparison is made with prior study October 05, 2022 and September 02, 2021. FINDINGS: Breast Composition: The breasts are almost entirely fatty. There are no dominant masses or suspicious calcifications. A tissue clip marker is once again seen in the deep upper medial aspect of the left breast. Stable small benign appearing bilateral axillary lymph nodes. No other significant abnormalities are identified. There has been no significant change since the prior study. BI/SCRN MAMM (CAD)W/KAYKAY BILAT IMPRESSION: Stable bilateral screening mammogram. Yearly follow-up mammogram recommended. (A) ASSESSMENT CATEGORY: BIRADS Category 2: Benign. A letter regarding these results will be sent to the patient by the facility within 30 days. Approximately 10% of breast cancers are not detected by mammography. A normal mammogram should not delay biopsy of a clinically suspicious abnormality. [id number] Electronically Signed: Jonathan Schaffer MD at 13:21 EDT ,
== END | disposition home or self-care (01) ==
PROVIDERS: PCP Internal Medicine; Referring Provider Internal Medicine; Visit Provider Internal Medicine
DX: Z12.31 Encounter for screening mammogram for malignant neoplasm of breast (principal); Z80.3 Family history of malignant neoplasm of breast
CPT/HCPCS: 77063; 77067

== ENCOUNTER 2024-03-19 08:32 | Emergency (ER) | payer MEDICARE, SELFPAY ==
[2024-03-19 08:33] VITALS: BP 173/65; PULSE 81; RESP 16; TEMP 36.2; O2SAT 97; BMI 34.5
--- NOTE | 2024-03-19 08:43 | ED.RN ---
Dr. Pandya bedside
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
[2024-03-19 08:55] VITALS: BP 173/65; PULSE 81; RESP 16; TEMP 36.2; O2SAT 97
== END 2024-03-19 08:59 | disposition home or self-care (01) ==
LOC: ED 08:56
PROVIDERS: Emergency Provider Emergency Medicine; PCP Internal Medicine; Visit Provider Emergency Medicine
DX: I87.8 Other specified disorders of veins (principal); E11.620 Type 2 diabetes mellitus with diabetic dermatitis; I25.10 Atherosclerotic heart disease of native coronary artery without angina pectoris; E78.00 Pure hypercholesterolemia, unspecified; I10 Essential (primary) hypertension; E03.9 Hypothyroidism, unspecified; Z79.890 Hormone replacement therapy; Z79.84 Long term (current) use of oral hypoglycemic drugs; Z79.82 Long term (current) use of aspirin; Z98.41 Cataract extraction status, right eye; Z98.42 Cataract extraction status, left eye; Z90.49 Acquired absence of other specified parts of digestive tract
CPT/HCPCS: 99282

== ENCOUNTER → 2024-03-21 | Outpatient (CLI) | payer MEDICARE, SELFPAY ==
[2024-03-21 11:06] LABS: Absolute Neutrophil Count 3.5 X10^3/uL (2.0-7.7); Basophil# 0.05 X10^3/uL; Basophil% 0.7 % (0-1); Eosinophil# 0.76 X10^3/uL; Eosinophils% 10.3 % (0-5); Hematocrit 40.4 % (37-47); Lymphocyte % 32.4 % (19-41); Mean Corp Hgb Conc 32.2 g/dL (32-36); Mean Corpuscular Hgb 29.4 pg (27.0-32.0); Mean Corpuscular Volume 91.4 fL (81-99); Mean Platelet Vol. 10.4 fl (6.2-12.0); Monocyte# 0.64 X10^3/uL; Monocyte% 8.6 % (0-10); NRBC Flagged by Analyzer 0 % (0-5); Neutrophil # 3.54 X10^3/uL (2.7-7.7); Neutrophil % 47.7 % (47-70); Platelet Count 321 K/mm3 (150-450); RBC Distribution Width CV 13.9 % (11.6-14.6); RBC Distribution Width SD 46.8 fl (35.1-43.9); Red Blood Count 4.42 M/mm3 (4.2-5.4); White Blood Count 7.4 K/mm3 (4.4-11.0)
[2024-03-21 11:14] LABS: Erythrocyte Sedimentation Rate 8 mm/hr (0-30)
[2024-03-21 11:15] LABS: AST(SGOT) 12 U/L (15-37); Alanine Aminotransfer ALT/SGPT 21 U/L (13-56); Albumin, Serum 3.9 g/dL (3.2-5.0); Alkaline Phosphatase 50 U/L (45-117); Anion Gap 7 (5-15); BUN 28 mg/dL (7-18); BUN/Creat Ratio 26.4 RATIO (10-20); Calcium,Total 10.2 mg/dL (8.5-10.1); Chloride 103 mmol/L (98-107); Creatinine, Serum 1.06 mg/dL (0.55-1.02); EST Glomerular Filtration Rate 53 mL/min (>60); Est Glom Filt Rate - Afr Amer 64 mL/min (>60); Globulin 3.9 g/dL (2.2-4.2); Glucose 151 mg/dL (74-106); Potassium 4.2 mmol/L (3.5-5.1); Protein, Total 7.8 g/dL (6.4-8.2); Sodium Level 141 mmol/L (136-145)
== END | disposition home or self-care (01) ==
LOC: LABSPEC 10:27
PROVIDERS: PCP Internal Medicine; Referring Provider Nurse Practitioner Family; Visit Provider Nurse Practitioner Family
DX: R41.82 Altered mental status, unspecified (principal)
CPT/HCPCS: 80053; 85025; 85652

== ENCOUNTER 2024-03-26 10:33 | Outpatient (RCR) | payer MEDICARE, SELFPAY ==
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
== END 2024-03-26 19:00 | disposition home or self-care (01) ==
LOC: OT 10:33
PROVIDERS: PCP Internal Medicine; Referring Provider Internal Medicine; Visit Provider Internal Medicine
DX: I89.0 Lymphedema, not elsewhere classified (principal)
CPT/HCPCS: 97166

== ENCOUNTER 2025-03-22 14:14 | Emergency (ER) | payer MEDICARE, SELFPAY ==
[2025-03-22 14:15] VITALS: BP 152/54; PULSE 65; RESP 16; TEMP 36.9; O2SAT 96
[2025-03-22 17:03] VITALS: BMI 32.3
[2025-03-22 17:04] VITALS: BP 148/70; PULSE 80; RESP 20; O2SAT 100
--- NOTE | 2025-03-22 17:16 | CT_ITS ---
PROCEDURE: ABDOMEN/PELVIS W IV CONT ONLY 03/22/2025 REASON FOR EXAM: LEFT LOWER QUADRANT ABDOMINAL PAIN TECHNIQUE: Procedure Code: [id number] Modality: CT Procedure: ABDOMEN/PELVIS W IV CONT ONLY Coronal and Sagittal reconstruction series were provided. One or more dose reduction techniques were used (e.g., Automated exposure control, adjustment of the mA and/or kV according to patient size, use of iterative reconstruction technique. FINDINGS: Plate and screw fixation of the bony pelvis. Right sacroiliac fixation screw. Degenerative changes of the spine. The peripheral soft tissues unremarkable. Kugmolnt-zw-gdxpyf atherosclerosis. Normal caliber abdominal aorta. Infrarenal IVC filter with tolerance in the caval lumen. The liver is unremarkable. Surgically absent gallbladder. The pancreas, spleen, and adrenals are unremarkable. Symmetric enhancement of the bilateral kidneys. No hydroureteronephrosis. The urinary bladder is unremarkable. The uterus is anteverted. Left ovarian 4.5 x 3.3 cm unilocular cyst. Colonic diverticulosis. In the region of the descending colon there is mild fat stranding and focal wall thickening of the colon in the region of an inflamed diverticulum (series 2, image 84 of 123). Compatible with acute uncomplicated diverticulitis. CT/Abdomen/Pelvis W IV Cont ONLY IMPRESSION: Acute uncomplicated diverticulitis involving the descending colon. Left ovarian 4.5 x 3.3 cm unilocular cyst. Given the patient's age, further ch aracterization with nonemergent ultrasound is recommended. Hcepjemm-hl-eczqgk atherosclerosis with infrarenal IVC filter in place. No abscess, perforation, or other acute complication identified. Reading Location: [id number]
--- NOTE | 2025-03-22 17:19 | EX.ED.DYSGE1 ---
HPI History of Present Illness Chief Complaint: Abd Pain Narrative Narrative: Chief complaint and HPI: 85-year-old female with past medical history of GERD, HTN, urinary incontinence, DM2 presents for evaluation of left lower quadrant abdominal pain. Onset of symptoms yesterday and progressively worsening today. She states that she has a known cyst in her uterus. Unsure if this is the source of her pain. She denies any fever, chills, shortness of breath, chest pain, nausea, vomiting, diarrhea, constipation, dysuria, vaginal bleeding. Review of systems: See HPI Medications: As listed on the chart Allergies: As listed on the chart PFSH: Per chart Vital signs: As listed on the chart. Reviewed. Physical exam: Gen: A&O x3, NAD Head: Normocephalic, atraumatic Eyes: No sclera icterus, conjunctiva clear ENT: Moist mucous membranes CV: RRR, no murmurs Resp: Lungs CTA BL, no w/r/c GI: Abd soft, non-distended tender to palpation in the left lower quadrant, no rebound or rigidity Musc: Full ROM, no deformity Skin: Warm, dry Neuro: Alert, oriented, grossly intact, sensation intact Psych: Cooperative, appropriate mood and affect [facility] History Atherosclerotic cardiovascular disease Chronic neuropathic pain Diabetes mellitus type II, controlled Allergic rhinitis GERD (gastroesophageal reflux disease) Hypothyroidism Urinary incontinence Chronic lumbar pain Arthritis High cholesterol DVT (deep venous thrombosis) Non-smoker Hypertension Addison filter in place Home Medications ?Medication ?Instructions ?Recorded ?Last Taken ?Type amlodipine 10 mg tablet 10 mg PO DAILY 04/03/20 03/19/24 History atorvastatin 40 mg tablet 40 mg PO QHS 04/03/20 03/19/24 History fluticasone propionate 50 1 spray NASAL DAILY PRN Allergies 04/03/20 Unknown History mcg/actuation nasal spray,suspension hydrochlorothiazide 25 mg tablet 25 mg PO DAILY 04/03/20 03/19/24 History levothyroxine 125 mcg tablet 125 mcg PO DAILY 04/03/20 03/08/21 04:00 History metformin 500 mg tablet 1,000 mg PO BID 04/03/20 Unknown History ogfledce-rpo-tulrz acid 0.4 1 ea PO DAILY 04/03/20 Unknown History mg-lycopene 300 mcg-lutein 250 mcg tablet cholecalciferol (vitamin D3) 25 5,000 unit PO DAILY 03/02/21 03/19/24 History mcg (1,000 unit) tablet (Vitamin D3) lisinopril 40 mg tablet 40 mg PO DAILY 08/07/23 Unknown History aspirin 81 mg chewable tablet 81 mg PO BREAKFAST 30 days #30 tabs 08/09/23 03/19/24 Rx meclizine 25 mg tablet 25 mg PO DAILY PRN antihistamine 08/30/23 Unknown History gabapentin 100 mg capsule 600 mg PO QDAY PRN 05/19/24 Unknown History metoprolol tartrate 25 mg tablet 12.5 mg (1/2 x 25 mg) PO BID #45 02/26/25 Unknown Rx tabs Allergy/AdvReac Type Severity Reaction Status Date / Time lidocaine Allergy Mild pain Verified 03/22/25 14:17 nabumetone Allergy PT UNSURE Verified 03/22/25 14:17 OF REACTION propoxyphene (From Allergy PT UNSURE Verified 03/22/25 14:17 Darvocet-N) OF REACTION rosiglitazone (From Avandia) Allergy PT UNSURE Verified 03/22/25 14:17 OF REACTION saxagliptin (From Onglyza) Allergy PT UNSURE Verified 03/22/25 14:17 OF REACTION simvastatin (From Zocor) Allergy PT UNSURE Verified 03/22/25 14:17 OF REACTION terbinafine (From Lamisil) Allergy PT UNSURE Verified 03/22/25 14:17 OF REACTION tramadol Allergy PT UNSURE Verified 03/22/25 14:17 OF REACTION warfarin (From Coumadin) Allergy PT UNSURE Verified 03/22/25 14:17 OF REACTION celecoxib (From Celebrex) AdvReac DIZZINESS Verified 03/22/25 14:17 prednisone AdvReac HEAD GETS Verified 03/22/25 14:17 FUZZY Family History Father CVA (cerebral vascular accident) Hypertension Mother Heart disease Hypertension Surgical History History of hip surgery Hx of colonoscopy History of axillary surgery History of [place] fundoplication Hx of right cataract extraction Hx of left cataract extraction Hx laparoscopic cholecystectomy Social History household members: spouse Smoking Status: Never smoker alcohol intake: never substance use type: does not use EXAM Physical Exam Const Vital Signs: 03/22/25 14:15 03/22/25 17:04 03/22/25 19:00 Temperature 98.4 F Temperature Source Oral Pulse Rate 65 80 69 Respiratory Rate 16 20 H 16 Blood Pressure 152/54 H 148/70 H 120/49 L Blood Pressure Mean 86 96 72 Pulse Ox 96 100 97 Oxygen Delivery Method Room Air Room Air Room Air MDM MDM MDM Narrative Medical decision making narrative: 85-year-old female with past medical history of GERD, HTN, urinary incontinence, DM2 presents for evaluation of left lower quadrant abdominal pain. Onset of symptoms yesterday and progressively worsening today. Differential diagnosis includes was not limited to different diverticulitis, UTI, urolithiasis, electrolyte abnormality, MARAL. NS bolus, morphine, Zofran ordered for symptoms. Laboratory workup ordered including CT abdomen and pelvis. CBC with leukocytosis of 14.4. No anemia. CMP relatively unremarkable without MARAL. Lipase unremarkable. UA negative for UTI. Lactic acid unremarkable. CT abdomen pelvis shows acute uncomplicated diverticulitis involving the descending colon. Left ovarian unilocular cyst. Recommend further characterization with nonemergent ultrasound. Moderate to severe atherosclerosis with IVC filter. No abscess, perforation. Patient's symptoms are likely secondary to diverticulitis. On reevaluation, patient's pain is controlled. She is able to tolerate p.o. intake. Patient comfortable discharging home on p.o. antibiotics. First dose given here. She has a follow-up appointment with her primary care doctor tomorrow. Recommend clear liquid diet over the next 2 days, advance as tolerated. Return back to ED symptoms change or worsen. She confirmed understanding. Patient stable to discharge home. She was educated that she needs to follow-up outpatient to receive an ultrasound for her unilocular cyst. Impression: 1. Acute uncomplicated diverticulitis 2. Left ovarian cyst, needs further workup outpatient with ultrasound Lab Data Labs: Laboratory Results - last 24 hr 03/22/25 03/22/25 03/22/25 17:10 17:25 18:11 WBC 14.4 H RBC 4.49 Hgb 13.6 Hct 40.6 MCV 90.4 MCH 30.3 MCHC 33.5 RDW Std Deviation 46.2 H RDW Coeff of Blanche 13.8 Plt Count 278 MPV 9.7 Immature Gran % (Auto) 0.300 Neut % (Auto) 71.8 H Lymph % (Auto) 20.0 [place] % (Auto) 6.5 Eos % (Auto) 1.1 Baso % (Auto) 0.3 Absolute Neuts (auto) 10.4 H Absolute Lymphs (auto) 2.89 Nucleated RBC % 0 Sodium 137 Potassium 4.6 Chloride 99 Carbon Dioxide 21.6 Anion Gap 16 H BUN 25 H Creatinine 0.90 Estim Creat Clear Calc 44.86 L Est GFR (MDRD) Non-Af 63 BUN/Creatinine Ratio 27.7 H Glucose 136 H Lactic Acid 1.6 Calcium 9.8 Total Bilirubin 0.47 AST 21 ALT 18 Alkaline Phosphatase 52 Total Protein 7.4 Albumin 4.4 Globulin 3.0 Albumin/Globulin Ratio 1.5 Lipase 56 Urine Color Straw Urine Clarity Clear Urine pH 6.0 Ur Specific [place] 1.030 Urine Protein Negative Urine Glucose (UA) Normal Urine Ketones 5 H Urine Occult Blood Negative Urine Nitrite Negative Urine Bilirubin Negative Urine Urobilinogen Normal Ur Leukocyte Esterase 25 H Urine RBC 0 SEEN Urine WBC 0 SEEN Ur Squamous Epith Cells 0 SEEN Urine Bacteria 0 SEEN Urine Mucus 0 SEEN Radiography Diagnostic Testing: Clinical Impression(s) from Imaging Studies Abdomen/Pelvis CT 03/22/25 17:16 IMPRESSION: Acute uncomplicated diverticulitis involving the descending colon. Left ovarian 4.5 x 3.3 cm unilocular cyst. Given the patient's age, further characterization with nonemergent ultrasound is recommended. Sslgkexu-vw-mohvwl atherosclerosis with infrarenal IVC filter in place. No abscess, perforation, or other acute complication identified. Reading Location: [address] Discharge Plan Triage Chief Complaint: Abd Pain ED Provider: Riley Ledesma Dx/Rx/DC Orders Prescriptions: No Action meclizine 25 mg tablet 25 mg PO DAILY PRN (Reason: antihistamine) gabapentin 100 mg capsule 600 mg PO QDAY PRN atorvastatin 40 MG tablet 40 mg PO QHS metformin 500 MG tablet 1,000 mg PO BID amlodipine 10 MG tablet 10 mg PO DAILY levothyroxine 125 MCG tablet 125 mcg PO DAILY hydrochlorothiazide 25 MG tablet 25 mg PO DAILY fluticasone propionate 1 SPRAY spray,suspension 1 spray NASAL DAILY PRN (Reason: Allergies) rcywkgch-vdx-RP-lycopen-lutein 1 EACH tablet 1 ea PO DAILY cholecalciferol (vitamin D3) [Vitamin D3] 25 mcg (1,000 unit) Tablet 5,000 unit PO DAILY lisinopril 40 mg tablet 40 mg PO DAILY aspirin 81 mg Tablet,Chewable 81 mg PO BREAKFAST 30 Days Qty: 30 0RF metoprolol tartrate 25 mg tablet 12.5 mg PO BID Qty: 45 3RF Primary Care Provider: Maritza Grubbs Referrals: Maritza Grubbs DO [Primary Care Provider, Internal Medicine] Print Language: Swedish
[2025-03-22 17:25] LABS: Hematocrit 40.6 % (37-47); Hemoglobin 13.6 g/dL (12.0-15.0); Immature Granulocytes Count 0.040 X10^3/uL (0.0-0.0); Mean Corp Hgb Conc 33.5 g/dL (32-36); Mean Corpuscular Volume 90.4 fL (81-99); Mean Platelet Vol. 9.7 fl (6.2-12.0); NRBC Flagged by Analyzer 0 % (0-5); Platelet Count 278 K/mm3 (150-450); RBC Distribution Width CV 13.8 % (11.6-14.6); RBC Distribution Width SD 46.2 fl (35.1-43.9); Red Blood Count 4.49 M/mm3 (4.2-5.4); White Blood Count 14.4 K/mm3 (4.4-11.0)
[2025-03-22] MEDS: 0.9% Normal Saline (1000mL) 1,000 ML 999 ML IV (17:25)
[2025-03-22 17:42] LABS: AST(SGOT) 21 U/L (<=31); Alanine Aminotransfer ALT/SGPT 18 U/L (<=34); Albumin, Serum 4.4 g/dL (3.4-4.8); Alkaline Phosphatase 52 U/L (35-104); Anion Gap 16 (5-15); BUN 25 mg/dL (4-19); BUN/Creat Ratio 27.7 RATIO (10-20); Calcium,Total 9.8 mg/dL (7.6-11.0); Carbon Dioxide 21.6 mmol/L (21.0-32.0); Chloride 99 mmol/L (98-108); Estimated Creatinine Clearance 44.86 ml/min (50-250); Globulin 3.0 g/dL (2.2-4.2); Glucose 136 mg/dL (70-99); Lipase 56 U/L (13-75); Potassium 4.6 mmol/L (3.3-5.1)
[2025-03-22 18:22] LABS: Mucous, Urine 0 SEEN /hpf (<or=2+); Red Blood Cells-Urine 0 SEEN /hpf (0-5); Squamous Epithelial Cells - UA 0 SEEN /hpf (5-10)
[2025-03-22 18:27] LABS: Color, Urine Straw (Yellow); Glucose, Dipstick Normal (Normal); Ketone-Dipstick 5 mg/dl (Negative); Leukocyte Esterase-Dipstick 25 /ul (Negative); Nitrite-Dipstick Negative (Negative); Occult Blood-Urine Negative /ul (Negative); Protein-Dipstick Negative (Negative); Specific Gravity, Urine 1.030 (1.002-1.030); Urine Bilirubin Dipstick Negative (Negative)
[2025-03-22 19:00] VITALS: BP 120/49; PULSE 69; RESP 16; O2SAT 97
[2025-03-22 19:22] VITALS: BP 120/49; PULSE 65; RESP 16; TEMP 36.4; O2SAT 100
== END 2025-03-22 19:29 | disposition home or self-care (01) ==
PROVIDERS: Emergency Provider Surgery; PCP Internal Medicine; Visit Provider Surgery
DX: R10.32 Left lower quadrant pain (principal); E11.40 Type 2 diabetes mellitus with diabetic neuropathy, unspecified; K57.32 Diverticulitis of large intestine without perforation or abscess without bleeding; N83.202 Unspecified ovarian cyst, left side; E78.00 Pure hypercholesterolemia, unspecified; I10 Essential (primary) hypertension; Z79.899 Other long term (current) drug therapy; E03.9 Hypothyroidism, unspecified; Z79.890 Hormone replacement therapy; Z79.84 Long term (current) use of oral hypoglycemic drugs; Z79.82 Long term (current) use of aspirin; Z98.41 Cataract extraction status, right eye; Z98.42 Cataract extraction status, left eye; Z90.49 Acquired absence of other specified parts of digestive tract
CPT/HCPCS: 74177; 80053; 81001; 83605; 83690; 85025; 96361; 96374; 96375; 99283; Q9967; A4216; J2405

== ENCOUNTER → 2025-04-15 | Outpatient (CLI) | payer MEDICARE, SELFPAY ==
--- NOTE | 2025-04-15 12:01 | US_ITS ---
PROCEDURE: PELVIC (NON ) 04/15/2025 REASON FOR EXAM: CYST LEFT OVARY TECHNIQUE: Procedure Code: USPEL Modality: US Procedure: PELVIC (NON ) FINDINGS: Uterus measures 6.2 x 4.5 x 2.4 Cm. It is anteverted position. No uterine fibroids are noted. Cystic structure within the LICO measuring 1.4 x 0.8 x 0.5 cm, which may reflect a nabothian cyst. Endometrial stripe measures 2 mm. It is hyperechoic. Right ovary is not well seen and left ovary measures 4.6 x 4 x 3.9 Cm. Normal blood flow within the left ovary. Left ovarian cyst measuring 3.6 x 3 x 3.7 cm. No significant free fluid within the cul-de-sac. US/Pelvic (Non ) IMPRESSION: Left ovarian cyst measuring 3.6 x 3 x 3.7 cm. No acute torsion of the left ova ry during this exam. Right ovary is not well seen. Reading Location: [facility]
--- NOTE | 2025-04-15 12:01 | BI_ITS ---
EXAM: SCRN MAMM (CAD)W/KAYKAY BILAT DATE: 04/15/2025 CLINICAL HISTORY: F, Age 85 y/o , SCREENING TECHNIQUE: Procedure Code: [id number] Modality: MG Procedure: SCRN MAMM (CAD)W/KAYKAY BILAT COMPARISON: Prior exam(s) were compared FINDINGS: TISSUE DENSITY: The breasts are almost entirely fatty. Bilateral Breast Mammographic Findings: No significant masses, calcifications or other abnormalities are identified. BI/SCRN MAMM (CAD)W/KAYKAY BILAT IMPRESSION: No mammographic evidence of malignancy in either breast. OVERALL FINAL ASSESSMENT BI-RADS 1: NEGATIVE. RECOMMENDATION: Routine annual follow-up in 1 Year Additional Recommendation none A letter with findings and recommendations will be mailed to the patient. Reading Location: [id number]
== END | disposition home or self-care (01) ==
LOC: OPBI 11:56
PROVIDERS: PCP Internal Medicine; Referring Provider Internal Medicine; Visit Provider Internal Medicine
DX: Z12.31 Encounter for screening mammogram for malignant neoplasm of breast (principal); N83.202 Unspecified ovarian cyst, left side
CPT/HCPCS: 76856; 77063; 77067

== ENCOUNTER → 2025-05-15 | Outpatient (CLI) | payer MEDICARE, SELFPAY ==
[2025-05-15 09:38] LABS: AST(SGOT) 17 U/L (<=31); Alanine Aminotransfer ALT/SGPT 14 U/L (<=34); Albumin, Serum 4.2 g/dL (3.4-4.8); Alkaline Phosphatase 44 U/L (35-104); Bilirubin, Direct 0.34 mg/dL (0.00-0.30); Cholesterol 144 mg/dL (<=200); Globulin 2.9 g/dL (2.2-4.2); Low Density Lipoprotein Calc. 70 mg/dL; Triglycerides 107 mg/dL; Very Low Density Lipoprotein 21 mg/dL (5-40); cholesterol:hdl ratio screen 2.64
== END | disposition home or self-care (01) ==
LOC: LAB 07:45
PROVIDERS: PCP Internal Medicine; Referring Provider Student in an Organized Health Care Education/Training Program; Visit Provider Student in an Organized Health Care Education/Training Program
DX: I25.10 Atherosclerotic heart disease of native coronary artery without angina pectoris (principal)
CPT/HCPCS: 36415; 80061; 80076